=== PATIENT | male | born 1960 | race Caucasian/White ===

== ENCOUNTER 2019-12-21 16:33 | Outpatient (CLI) | payer OTHER, SELFPAY ==
--- NOTE | ~2019-12-21 | XR_ITS ---
XR hand BI arthritis min 3V 12/21/2019 17:05 Indication: Osteoarthritis. Fourth metacarpal pain. Procedure: 4 views of each hand Comparison: No prior studies for comparison. Findings: There is mild polyarticular osteoarthritis, most advanced in the first MCP, CMC and triscap he joints. No acute fracture or traumatic malalignment. No focal soft tissue abnormality. No radiopaq ue foreign bodies. No erosive changes. Impression: 1: Mild polyarticular osteoarthritis. Reviewed, dictated and finalized at location B. N DESIGN CONSULTANT Impression: 1: Mild polyarticular osteoarthritis.
--- NOTE | ~2019-12-21 | XR_ITS ---
XR knee RT 2V 12/21/2019 17:06 Indication: Osteoarthritis Procedure: 2 view right knee Comparison: 05/24/2016 Findings: There is mild-moderate tricompartment osteoarthritis, most advanced in the patellofemoral c ompartment. No significant joint effusion. No acute fracture or traumatic malalignment. Impression: 1: Mild-moderate tricompartment osteoarthritis of the right knee. Reviewed, dictated and finalized at location B. RICT AGENT Impression: 1: Mild-moderate tricompartment osteoarthritis of the right knee.
--- NOTE | ~2019-12-21 | XR_ITS ---
EXAMINATION: XR hip BI 2V w AP pelvis EXAM DATE: 12/21/2019 17:07 INDICATION: No known recent injury provided at this time. Pain of the hips bilaterally. Osteoarthriti s. TECHNIQUE: Each hip imaged independently (separate right and also left hip) 'frog leg' and frontal p rojections for interpretation. Frontal projection pelvis. There is no prior study for comparison. FINDINGS: There is moderate to severe left hip, moderate right hip osteoarthritis. Mild flattening o f the left humeral head, could be from chronic avascular necrosis. There are no acute fractures or di slocations identified. There is no subcutaneous gas. The soft tissue is unremarkable. There are n o radiopaque foreign bodies. IMPRESSION: 1. 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 2. Moderate right hip primary osteoarthritis. Reviewed, dictated and finalized at location A. CH DIRECTOR IMPRESSION: 1. Moderate to severe left hip osteoarthritis, possibly secondary to femoral h ead avascular necrosis. 2. Moderate right hip primary osteoarthritis.
--- NOTE | ~2019-12-21 | XR_ITS ---
EXAMINATION: XR knee LT 2V EXAM DATE: 12/21/2019 17:04 INDICATION: Left knee pain, osteoarthritis. TECHNIQUE: Frontal and lateral projections of the left knee. Comparison is made to prior examination from 05/24/2016. FINDINGS: There is moderate left patellofemoral, mild tibiofemoral primary osteoarthritis. No joint effusion. There are no acute fractures or dislocations identified. There is no subcutaneous gas. Th e soft tissue is unremarkable. There are no radiopaque foreign bodies. IMPRESSION: Left knee osteoarthritis, moderate at the patellofemoral compartment. Reviewed, dictated and finalized at location A. OUT OPERATOR IMPRESSION: Left knee osteoarthritis, moderate at the patellofemoral compartmen tacho
== END 2019-12-21 16:34 | disposition home or self-care (01) ==
LOC: ANHIMG 16:36
PROVIDERS: PCP Internal Medicine; Visit Provider Internal Medicine
DX: M19.041 Primary osteoarthritis, right hand (principal); M19.042 Primary osteoarthritis, left hand; M17.0 Bilateral primary osteoarthritis of knee; M16.0 Bilateral primary osteoarthritis of hip
CPT/HCPCS: 73130; 73521; 73560

== ENCOUNTER 2019-12-31 08:46 | Outpatient (CLI) | payer OTHER, SELFPAY ==
--- NOTE | 2020-01-10 12:03 | SLEEP_ITS ---
Basic Nocturnal Polysomnogram. DATE OF STUDY: 12/31/2019 ORDERING PHYSICIAN: Dr. Bruno Baez. REASON FOR THE STUDY: Loud snoring, waking up from sleep short of breath, restless sleep. HISTORY: This patient is a 59-year-old male, 72 inches tall, weighing 200 pounds with a body mass index of 27.1. He has a history of loud snoring, waking himself up during sleep, short of breath, restless sleep with tossing and turning, and snoring loudly enough that others complain about it. He occasionally has trouble sleeping with a cold. He frequently has breathing problems reported to him by others. He occasionally sweats excessively at night. He rarely notices his heart pounding or beating irregularly at night. He occasionally falls asleep during the day rarely involuntarily, never while driving and never with physical effort. He rarely has daytime difficulty due to excessive sleepiness. He does not feel paralyzed on waking or falling asleep. He denies vivid dreamlike scenes upon awakening or falling asleep. He is never afraid to go to sleep. He rarely has nightmares. He occasionally remembers his dreams. He frequently has racing thoughts. He rarely feels sad or depressed. He frequently feels anxious. He occasionally has muscular tension and notices parts of his body jerking. He rarely kicks at night. He frequently has crawly achy feelings in his legs and leg pain at night. He does not have morning jaw pain. He occasionally grinds his teeth at night. He occasionally is bothered by pain during the day. He frequently awakens with pain at night and feels stiff in the morning. He occasionally wakes up with sore achy muscles and pain in the neck and spine. He has fatigue, dizziness, memory problems, tension and takes antacids regularly. Normal bedtime is 9-10 p.m. falling asleep within 30-60 minutes, typically waking 3 or 4 times during the night to use the bathroom. He estimates that he has 5-6 hours of sleep each night. Weekend schedule is going to bed 1 hour later and waking up 2 hours later. He does take naps. A short nap may be refreshing. He is usually drowsy in the morning for an hour or longer. He feels better in the evening than in the morning. MEDICAL COMORBIDITIES: Acid reflux, seasonal allergies, arthritis, cataract surgery. MEDICATIONS: Atorvastatin, omeprazole, Naprosyn, fish oil, vitamin D3, fiber, loratadine. HABITS: Less than a half pack per day tobacco. 2-3 sodas or teas daily. No alcohol. DESCRIPTION OF THE STUDY: On the [place] Sleepiness Scale his score is 10. This was conducted as a full night basic nocturnal polysomnogram using multiple channel Silver Curve system including EOG, EEG, submental EMG, EKG, nasal and oral airflow using thermistors and nasal pressure sensors chest and abdominal belts, body position data and pulse oximetry. The study was scored using [facility] guidelines. The patient did not meet criteria early enough in the night for to be a split study. Duration of the study was 434.6 minutes. Sleep time 209 minutes. Sleep efficiency low at 48.1%. Sleep latency was prolonged 35.4 minutes. REM latency was prolonged 274 minutes. He spent 47.6% of the study awake after sleep onset 190.2 minutes. Sleep architecture showed 13.3% stage 1 sleep, 32.1% stage 2 sleep, 1.6% stage 3 sleep and 5.4% stage REM. Sleep was very fragmented with long episodes of wakefulness, especially in the first half the study. He had frequent shifts between stage I, stage II, and stage wake. He had 2 REM episodes towards the end of the study. The apnea-hypopnea index was 40.5. The obstructive index is 32.4 and the central index is 7.8. He had 20 obstructive apneas, 2 central apneas and 2 obstructive hypopneas in non-supine REM for an index of 67. He had
== END 2019-12-31 08:47 | disposition home or self-care (01) ==
LOC: ANHCSM 08:47
PROVIDERS: PCP Internal Medicine; Visit Provider Internal Medicine
DX: G47.33 Obstructive sleep apnea (adult) (pediatric) (principal); K21.9 Gastro-esophageal reflux disease without esophagitis; E78.5 Hyperlipidemia, unspecified; J30.2 Other seasonal allergic rhinitis
CPT/HCPCS: 95810

== ENCOUNTER 2020-03-17 00:18 | Outpatient (CLI) | payer OTHER, SELFPAY ==
[2020-03-17 17:26] LABS: SARS-CoV-2 RNA PCR Negative
== END 2020-03-17 00:19 | disposition home or self-care (01) ==
LOC: ANHCOVIDDT 00:19
PROVIDERS: PCP Internal Medicine; Visit Provider Internal Medicine Gastroenterology
DX: Z01.818 Encounter for other preprocedural examination (principal); Z11.59 Encounter for screening for other viral diseases
CPT/HCPCS: 87635; C9803; U0003

== ENCOUNTER → 2020-03-20 00:01 | Day surgery (SDC) | payer OTHER, SELFPAY ==
[2020-03-10 13:23] VITALS: BMI 26.9
--- NOTE | 2020-03-20 10:21 | WPDANESEPPF ---
Anes - Initial Pre Proc Eval Procedure: Operation Date: 01/12/20 11:30 Proposed Procedures p Esophagogastroduodenoscopy - Bandar Hart DO Operation Date: 03/20/20 11:30 Proposed Procedures p Esophagogastroduodenoscopy - Bandar Hart DO Date/Time: 03/20/20 10:21 Surgeon: Bandar Hart DO Pre Op Diagnosis: Gerd Patient Data Age: 59 Gender: M Height: 6 ft Weight: 90 kg Allergies Allergy/AdvReac Type Severity Reaction Status Date / Time amoxicillin Allergy Unknown Skin Verified 03/20/20 10:23 irritation Penicillins Allergy Unknown Unknown Verified 03/20/20 10:23 Home Medications Medication Instructions Recorded Confirmed Type atorvastatin 20 mg tablet 20 mg PO DAILY #90 tablet 09/21/19 03/10/20 Rx omeprazole 40 mg capsule,delayed 40 mg PO DAILY #90 cap 09/21/19 03/10/20 Rx release loratadine 10 mg tablet 10 mg PO DAILY 12/07/19 03/10/20 History omega-3 fatty acids 1,000 mg 1,000 mg PO BID 12/07/19 03/10/20 History capsule psyllium husk 0.4 gram capsule 0.4 gm PO BID cap 12/07/19 03/10/20 History cholecalciferol (vitamin D3) 25 25 mcg PO DAILY 01/28/20 03/10/20 History mcg (1,000 unit) capsule duloxetine 20 mg capsule,delayed 20 mg PO DAILY #30 cap 01/28/20 03/10/20 Rx release ferrous sulfate 325 mg (65 mg 325 mg PO DAILY 01/28/20 03/10/20 History iron) tablet tramadol 50 mg tablet 50 mg PO Q6H PRN #90 tablet 01/28/20 03/10/20 Rx melatonin 3 mg PO HS PRN 03/10/20 03/10/20 History naproxen sodium 220 mg PO DAILY 03/10/20 03/10/20 History Patient hx anesthesia problems: none Family hx anesthesia problems: none PMFSH Past Medical History Medical History (Updated 03/20/20 @ 10:34 by Bandar Hart DO) Anxiety and depression GERD (gastroesophageal reflux disease) HLD (hyperlipidemia) MARGARITA (obstructive sleep apnea) Family History Family History (Updated 09/23/18 @ 10:47 by DOCTOR UNKNOWN) Mother Diabetes mellitus Father Carcinoma of colon Other Family history of cardiovascular disease Family history of malignant neoplasm Social History Social History Smoking status: Light tobacco smoker Second hand tobacco smoke exposure: No Alcohol intake: never Gender identity (if verbalized by the patient): Male Anes - Eval Final PreProcedure Day of Procedure 03/20/20 10:21 Patient weight: normal Heart: regular rate and rhythm Lungs: clear to auscultation Airway: Mallampati scale class II Neurological: alert and oriented Last oral intake: >/= 8 hours ASA classification: II Emergent: no Anesthetic plan: proceed Anesthesia type and monitoring: general GIVS and standard monitoring Informed Consent: The patient's anesthetic plan and its attendant risks and benefits were discussed with the patient/family/POA. Questions were solicited and answers provided to the satisfaction of the patient/family/POA.
[2020-03-20 10:24] VITALS: BP 112/71; PULSE 78; RESP 20; TEMP 36.6; O2SAT 98
[2020-03-20] MEDS: LACTATED RINGERS 1,000 ML 150 ML IV CONT (10:41)
--- NOTE | 2020-03-20 10:42 | PM.IMHP ---
H&P: HPI History of Present Illness Chief complaint: Gerd Narrative: Reason for visit: EGD. This very pleasant gentleman is seen in consultation at the request of the primary. The patient was examined. GERD with occasional breakthrough symptoms and regurgitation. Family history of colon cancer. Patient has a history of colon polyps. Per past medical history. Recommendation: EGD. Colonoscopy has been scheduled. History: This very pleasant gentleman is history of reflux disease. He has occasional breakthrough symptoms despite omeprazole once a day. He does take NSAIDs regularly. He does have occasional regurgitation evening. Red sauces 10 to exacerbate his symptoms. He denies any nausea, vomiting, indigestion or significant dysphagia. He denies any constipation, diarrhea, hematochezia, melena or acholic stools. He has a previous history of colonoscopy in colon polyps. Patient is here for EGD. The patient complains of occasional lightheadedness. Otherwise review of systems unremarkable. General: very pleasant patient in no acute distress. HEENT: Head was normocephalic sclerae is clear mouth without masses neck was supple. Heart: Rate rhythm regular without S3 or S4. Lungs: CTA. Abdomen: Soft with no guarding or rigidity. Bowel sounds were active. Neurologic: Cranial nerves 2 through 12 intact. No focal defects. No clonus. Musculoskeletal system: Revealed no joint tenderness or swelling no muscle atrophy. Extremities: Reveal no significant edema. Skin: Warm and dry with normal turgor. Mental status: intact. Patient is alert and oriented. Review of Systems Review of Systems: All systems reviewed & are unremarkable except as noted in HPI and below PMFSH Past Medical History Medical History Anxiety and depression GERD (gastroesophageal reflux disease) HLD (hyperlipidemia) MARGARITA (obstructive sleep apnea) Tobacco use Surgical History Surgical History (Updated 03/20/20 @ 10:42 by Bandar Hart DO) H/O arthroscopic knee surgery H/O colonoscopy History of cataract surgery Family History Family History (Updated 09/23/18 @ 10:47 by DOCTOR UNKNOWN) Mother Diabetes mellitus Father Carcinoma of colon Other Family history of cardiovascular disease Family history of malignant neoplasm Social History Social History Smoking status: Light tobacco smoker Second hand tobacco smoke exposure: No Alcohol intake: never Gender identity (if verbalized by the patient): Male Meds Home Medications and Allergies Home Medications Medication Instructions Recorded Confirmed Type atorvastatin 20 mg tablet 20 mg PO DAILY #90 tablet 09/21/19 03/10/20 Rx omeprazole 40 mg capsule,delayed 40 mg PO DAILY #90 cap 09/21/19 03/10/20 Rx release loratadine 10 mg tablet 10 mg PO DAILY 12/07/19 03/10/20 History omega-3 fatty acids 1,000 mg 1,000 mg PO BID 12/07/19 03/10/20 History capsule psyllium husk 0.4 gram capsule 0.4 gm PO BID cap 12/07/19 03/10/20 History cholecalciferol (vitamin D3) 25 25 mcg PO DAILY 01/28/20 03/10/20 History mcg (1,000 unit) capsule duloxetine 20 mg capsule,delayed 20 mg PO DAILY #30 cap 01/28/20 03/10/20 Rx release ferrous sulfate 325 mg (65 mg 325 mg PO DAILY 01/28/20 03/10/20 History iron) tablet tramadol 50 mg tablet 50 mg PO Q6H PRN #90 tablet 01/28/20 03/10/20 Rx melatonin 3 mg PO HS PRN 03/10/20 03/10/20 History naproxen sodium 220 mg PO DAILY 03/10/20 03/10/20 History Allergies Allergy/AdvReac Type Severity Reaction Status Date / Time amoxicillin Allergy Unknown Skin Verified 03/20/20 10:23 irritation Penicillins Allergy Unknown Unknown Verified 03/20/20 10:23 Vital Signs Vital Signs - 24 hr 03/20/20 10:24 Temperature 36.6 C Pulse Rate 78 Respiratory Rate 20 Blood Pressure 112/71 Pulse Oximetry 98
[2020-03-20] MEDS: BENZOCAINE (*SP) 60 ML SPRAY CAN (HURRICAINE) 1 SPRAY MUCOUS MEM (10:46)
[2020-03-20 10:57] VITALS: BP 83/46; PULSE 75; RESP 17; O2SAT 97
[2020-03-20 11:07] VITALS: BP 102/66; PULSE 77; RESP 16; O2SAT 96
[2020-03-20 11:17] VITALS: BP 97/64; PULSE 69; RESP 16; O2SAT 96
== END ==
PROVIDERS: PCP Internal Medicine; Visit Provider Internal Medicine Gastroenterology
PROC: 0DJ08ZZ Inspection of Upper Intestinal Tract, Via Natural or Artificial Opening Endoscopic (ICD-10-PCS; CPT 43235; principal; 2020-03-20 11:30)
DX: K21.9 Gastro-esophageal reflux disease without esophagitis (principal); K22.70 Barrett's esophagus without dysplasia; E78.5 Hyperlipidemia, unspecified; G47.33 Obstructive sleep apnea (adult) (pediatric); F41.8 Other specified anxiety disorders; F17.200 Nicotine dependence, unspecified, uncomplicated
CPT/HCPCS: 43239; 87081; 88305; J2704; J7120

== ENCOUNTER 2020-03-31 00:27 | Outpatient (CLI) | payer OTHER, SELFPAY ==
[2020-03-31 17:48] LABS: SARS-CoV-2 RNA PCR Negative
== END 2020-03-31 00:28 | disposition home or self-care (01) ==
LOC: ANHCOVIDDT 00:27
PROVIDERS: PCP Internal Medicine; Visit Provider Internal Medicine Gastroenterology
DX: Z01.812 Encounter for preprocedural laboratory examination (principal); Z20.828 Contact with and (suspected) exposure to other viral communicable diseases
CPT/HCPCS: 87635; C9803; U0003

== ENCOUNTER 2020-04-03 01:04 | Day surgery (SDC) | payer OTHER, SELFPAY ==
[2020-03-28 15:08] VITALS: BMI 27.1
[2020-04-03 10:57] VITALS: BP 123/72; PULSE 98; RESP 18; TEMP 36.6; O2SAT 99
--- NOTE | 2020-04-03 11:10 | WPDANESEPPF ---
Anes - Initial Pre Proc Eval Procedure: Operation Date: 04/03/20 12:00 Proposed Procedures p Screening Colonoscopy - Bandar Hart DO Date/Time: 04/03/20 11:10 Surgeon: Bandar Hart DO Pre Op Diagnosis: Neoplasm Screening Patient Data Age: 59 Gender: M Height: 6 ft Weight: 85.3 kg Last Vital Signs Temp 36.6 C 04/03/20 10:57 Pulse 98 04/03/20 10:57 Resp 18 04/03/20 10:57 BP 123/72 04/03/20 10:57 Pulse Ox 99 04/03/20 10:57 Allergies Allergy/AdvReac Type Severity Reaction Status Date / Time amoxicillin Allergy Unknown Skin Verified 04/03/20 10:53 irritation Penicillins Allergy Unknown Unknown Verified 04/03/20 10:53 Home Medications Medication Instructions Recorded Confirmed Type loratadine 10 mg tablet 10 mg PO DAILY 12/07/19 03/28/20 History omega-3 fatty acids 1,000 mg 1,000 mg PO BID 12/07/19 03/28/20 History capsule psyllium husk 0.4 gram capsule 0.4 gm PO BID cap 12/07/19 03/28/20 History cholecalciferol (vitamin D3) 25 25 mcg PO DAILY 01/28/20 03/28/20 History mcg (1,000 unit) capsule ferrous sulfate 325 mg (65 mg 325 mg PO DAILY 01/28/20 03/28/20 History iron) tablet melatonin 3 mg PO HS PRN 03/10/20 03/28/20 History naproxen sodium 220 mg PO DAILY 03/10/20 03/28/20 History atorvastatin 20 mg tablet 20 mg PO DAILY #90 tablet 03/21/20 03/28/20 Rx omeprazole 40 mg capsule,delayed 40 mg PO DAILY #90 cap 03/21/20 03/28/20 Rx release duloxetine 20 mg capsule,delayed 20 mg PO DAILY #30 cap 03/22/20 03/28/20 Rx release tramadol 50 mg tablet 50 mg PO Q6H PRN #90 tablet 03/22/20 04/03/20 Rx acetaminophen [Tylenol Arthritis 650 mg PO Q12H PRN 03/28/20 03/28/20 History Pain] Patient hx anesthesia problems: none Family hx anesthesia problems: none PMFSH Past Medical History Medical History Anxiety and depression GERD (gastroesophageal reflux disease) HLD (hyperlipidemia) MARGARITA (obstructive sleep apnea) Tobacco use Surgical History Surgical History H/O arthroscopic knee surgery H/O colonoscopy History of cataract surgery Family History Family History Mother Diabetes mellitus Father Carcinoma of colon Other Family history of cardiovascular disease Family history of malignant neoplasm Social History Social History Smoking status: Light tobacco smoker Second hand tobacco smoke exposure: No Alcohol intake: never Gender identity (if verbalized by the patient): Male Anes - Eval Final PreProcedure Day of Procedure 04/03/20 11:10 Patient weight: overweight Heart: regular rate and rhythm Lungs: clear to auscultation Airway: Mallampati scale class II Neurological: alert and oriented Last oral intake: >/= 8 hours ASA classification: II Emergent: no Anesthetic plan: proceed Anesthesia type and monitoring: general GIVS and standard monitoring Informed Consent: The patient's anesthetic plan and its attendant risks and benefits were discussed with the patient/family/POA. Questions were solicited and answers provided to the satisfaction of the patient/family/POA.
[2020-04-03] MEDS: LACTATED RINGERS 1,000 ML 150 ML IV CONT (11:17)
--- NOTE | 2020-04-03 11:44 | PM.IMHP ---
H&P: HPI History of Present Illness Chief complaint: Neoplasm Screening Narrative: This very pleasant gentleman is seen in consultation at the request the primary. Reason for visit is colonoscopy. Impression: Screening and surveillance colonoscopy. The patient's history adenomatous colon polyps. GERD well controlled on medication. HLD. MARGARITA. Arthritis. Recommendation: Colonoscopy. History: This very pleasant gentleman has a negative GI review systems. He has a history of reflux disease well controlled on medication. He is here for screening and surveillance colonoscopy. He has a history of adenomatous colon polyps. Physical examination: General: very pleasant patient in no acute distress. HEENT: Head was normocephalic sclerae is clear mouth without masses neck was supple. Heart: Rate rhythm regular without S3 or S4. Lungs: CTA. Abdomen: Soft with no guarding or rigidity. Bowel sounds were active. Neurologic: Cranial nerves 2 through 12 intact. No focal defects. No clonus. Musculoskeletal system: Revealed no joint tenderness or swelling no muscle atrophy. Extremities: Reveal no significant edema. Skin: Warm and dry with normal turgor. Mental status: intact. Patient is alert and oriented. Review of Systems Review of Systems: All systems reviewed & are unremarkable except as noted in HPI and below PMFSH Past Medical History Medical History Adenomatous colon polyp Anxiety and depression GERD (gastroesophageal reflux disease) HLD (hyperlipidemia) MARGARITA (obstructive sleep apnea) Tobacco use Surgical History Surgical History H/O arthroscopic knee surgery H/O colonoscopy History of cataract surgery Family History Family History Mother Diabetes mellitus Father Carcinoma of colon Other Family history of cardiovascular disease Family history of malignant neoplasm Social History Social History Smoking status: Light tobacco smoker Second hand tobacco smoke exposure: No Alcohol intake: never Gender identity (if verbalized by the patient): Male Meds Home Medications and Allergies Home Medications Medication Instructions Recorded Confirmed Type loratadine 10 mg tablet 10 mg PO DAILY 12/07/19 03/28/20 History omega-3 fatty acids 1,000 mg 1,000 mg PO BID 12/07/19 03/28/20 History capsule psyllium husk 0.4 gram capsule 0.4 gm PO BID cap 12/07/19 03/28/20 History cholecalciferol (vitamin D3) 25 25 mcg PO DAILY 01/28/20 03/28/20 History mcg (1,000 unit) capsule ferrous sulfate 325 mg (65 mg 325 mg PO DAILY 01/28/20 03/28/20 History iron) tablet melatonin 3 mg PO HS PRN 03/10/20 03/28/20 History naproxen sodium 220 mg PO DAILY 03/10/20 03/28/20 History atorvastatin 20 mg tablet 20 mg PO DAILY #90 tablet 03/21/20 03/28/20 Rx omeprazole 40 mg capsule,delayed 40 mg PO DAILY #90 cap 03/21/20 03/28/20 Rx release duloxetine 20 mg capsule,delayed 20 mg PO DAILY #30 cap 03/22/20 03/28/20 Rx release tramadol 50 mg tablet 50 mg PO Q6H PRN #90 tablet 03/22/20 04/03/20 Rx acetaminophen [Tylenol Arthritis 650 mg PO Q12H PRN 03/28/20 03/28/20 History Pain] Allergies Allergy/AdvReac Type Severity Reaction Status Date / Time amoxicillin Allergy Unknown Skin Verified 04/03/20 10:53 irritation Penicillins Allergy Unknown Unknown Verified 04/03/20 10:53 Vital Signs Vital Signs - 24 hr 04/03/20 10:57 Temperature 36.6 C Pulse Rate 98 Respiratory Rate 18 Blood Pressure 123/72 Pulse Oximetry 99
[2020-04-03] MEDS: SIMETHICONE ORAL SUSPENSION 20 MG/0.3 ML 30 ML BOTTLE 0.6 ML IRRIGATION (12:24)
[2020-04-03 12:26] VITALS: BP 106/67; PULSE 76; RESP 16; O2SAT 99
[2020-04-03 12:36] VITALS: BP 104/67; PULSE 80; RESP 16; O2SAT 99
[2020-04-03 12:46] VITALS: BP 104/74; PULSE 78; RESP 18; O2SAT 99
== END 2020-04-03 13:01 | disposition home or self-care (01) ==
PROVIDERS: PCP Internal Medicine; Visit Provider Internal Medicine Gastroenterology
PROC: 0DJD8ZZ Inspection of Lower Intestinal Tract, Via Natural or Artificial Opening Endoscopic (ICD-10-PCS; CPT 45378; principal; 2020-04-03 12:00)
DX: Z12.11 Encounter for screening for malignant neoplasm of colon (principal); D12.2 Benign neoplasm of ascending colon; Z80.0 Family history of malignant neoplasm of digestive organs; E78.5 Hyperlipidemia, unspecified; G47.33 Obstructive sleep apnea (adult) (pediatric); K21.9 Gastro-esophageal reflux disease without esophagitis; F41.8 Other specified anxiety disorders; F17.200 Nicotine dependence, unspecified, uncomplicated
CPT/HCPCS: 45380; 88305; J2001; J2704; J7120

== ENCOUNTER 2020-04-20 11:15 | Outpatient (CLI) | payer OTHER, SELFPAY ==
--- NOTE | ~2020-04-20 | XR_ITS ---
EXAMINATION: XR lg joint inject/asp w image DATE: 04/20/2020 12:03 INDICATION: Left hip arthritis TECHNIQUE: A time-out was performed to verify the patient's name, date of , and procedure to b e performed. The procedure including the risks, benefits, and alternatives was discussed with the pat ient. Risks discussed included bleeding and infection. The patient understood the risks and agreed to proceed. The skin overlying the left hip joint was prepped and draped in usual sterile fashion. An esthetic was administered with 1% lidocaine subcutaneously. A 22 G needle was advanced under fluoros copic guidance into the joint. Injection of 0.6 mL of Omnipaque 240 confirmed intra-articular positi on of the needle. Subsequently, injectate consisting of 3 mm of a 2:1 mixture of 0.5% Marcaine: 80 m g/mL Depo-Medrol for a total dosage of 80 mg Depo-Medrol was instilled. Washout of contrast was seen confirming intra-articular administration. The needle was removed and the entry site was cleaned and dressed. There were no immediate complications. Fluoroscopy exposure time was 0.1 minutes. The total number of images was 2. FINDINGS: Real-time fluoroscopy demonstrates the needle in the left hip joint. Patient's pain prior t o procedure:6/10. Patient's pain following the procedure: 4/10. Severe osteoarthritis at the left hi p with flattening of the articular surface of the superolateral left femoral head. IMPRESSION: 1. Left hip joint injection of local anesthetic and steroid with decrease in the patient's presenting pain. Reviewed, dictated and finalized at location A. IMPRESSION: 1. Left hip joint injection of local anesthetic and steroid with decrease in th e patient's presenting pain.
== END 2020-04-20 11:16 | disposition home or self-care (01) ==
PROVIDERS: PCP Internal Medicine; Visit Provider Orthopaedic Surgery
DX: M16.12 Unilateral primary osteoarthritis, left hip (principal)
CPT/HCPCS: 20610; 77002; J1040; Q9966

== ENCOUNTER → 2020-12-04 08:44 | Outpatient (CLI) | payer OTHER, SELFPAY ==
--- NOTE | ~2020-12-04 | CT_ITS ---
EXAMINATION: CT lung screening DATE: 12/04/2020 08:58 INDICATION: Personal history of nicotine dependence, current smoker with 30 pack year history TECHNIQUE: Computed tomography (CT) of the chest was performed without intravenous contrast. The dose -length product (DLP) was 157.29 mGy-cm. Automated exposure control and iterative reconstruction tech Dissolve were employed. COMPARISON: None FINDINGS: There is mild emphysema. No suspicious pulmonary nodules are identified. There is no pleura l effusion or pneumothorax. The lungs are free of acute opacities. No pathologically enlarged thoraci c lymph nodes are identified. The heart size is normal. Calcified coronary artery atherosclerosis is noted. There is mild thoracic spondylosis. IMPRESSION: 1. Lung-RADS category 1: Negative. Continue annual screening with noncontrast low-dose chest CT in 12 months. Reviewed, dictated and finalized at location A. IGURATION TECHNICIAN IMPRESSION: 1. Lung-RADS category 1: Negative. Continue annual screening with noncontrast l ow-dose chest CT in 12 months.
== END ==
PROVIDERS: PCP Internal Medicine; Visit Provider Internal Medicine
DX: Z12.2 Encounter for screening for malignant neoplasm of respiratory organs (principal); Z87.891 Personal history of nicotine dependence
CPT/HCPCS: 71271

== ENCOUNTER 2021-03-08 08:06 | Outpatient (CLI) | payer OTHER, SELFPAY ==
--- NOTE | 2021-03-08 08:54 | ECG_ITS ---
Measurements Intervals [place] Rate: 77 P: 36 [place]: 175 QRS: 8 QRSD: 94 T: 14 QT: 363 QTc: 411 Interpretive Statements SINUS RHYTHM INCOMPLETE RIGHT BUNDLE BRANCH BLOCK BASELINE ARTIFACT- I, II, III, AVR, AVL, AVF BORDERLINE ECG Electronically Signed On 03-08-2021 10:30:08 CDT by Ozzy Bhat D.O.
[2021-03-08 09:27] LABS: Basophils Percent Auto 0.6 % (0.2-1.2); Eosinophils Absolute Auto 0.1 K/mm3 (0-0.3); Eosinophils Percent Auto 1.1 % (0-4.4); Hematocrit 43.5 % (42.0-52.0); Hemoglobin 14.8 g/dL (14.0-18.0); Immature Granulocyte Absolute 0.01 K/mm3 (0.00-0.031); Immature Granulocyte Percent A 0.2 % (0-0.5); Lymphocytes Absolute Auto 1.07 K/mm3 (0.9-3.2); Lymphocytes Percent Auto 22.8 % (18.3-44.2); Mean Corpuscular Volume 94.2 fl (80-100); Mean Platelet Volume 8.8 fl (7.4-10.4); Monocytes Absolute Auto 0.5 K/mm3 (0.1-0.6); Monocytes Percent Auto 11.1 % (2.6-8.5); Neutrophils Percent Auto 64.2 % (45.5-73.1); Platelet Count Result 239 k/mm3 (150-375); Red Blood Count 4.62 M/mm3 (4.6-6.20); Red Cell Distribution Width 12.5 % (11.5-14.5); White Blood Count 4.7 K/mm3 (4.5-10.0)
[2021-03-08 09:31] LABS: Add Urine Microscopic? YES; Appearance Urine Clear (Clear); Bilirubin Urine Negative (Negative); Blood Urine 2+ (Negative); Color Urine Yellow (Yellow); Glucose Urine UA Negative (Negative); Ketones Urine Negative (Negative); Leukocyte Esterase Ur Negative LEU/UL (Negative); Mucus Urine Heavy /lpf; Nitrate Urine Negative (Negative); Protein Urine 2+ mg/dL (Negative); Urobilinogen Urine Negative mg/dL (<2.0); WBC Urine 0-3 /hpf
[2021-03-08 09:38] LABS: Prothrombin Time 13.8 Seconds (11.1-14.7)
[2021-03-08 09:39] LABS: Albumin Level 4.6 g/dL (3.5-5.1); Anion Gap 8 mmol/L (8-16); Blood Urea Nitrogen 23 mg/dL (9-20); Calcium 9.5 mg/dL (8.4-10.2); Carbon Dioxide 29 mmol/L (22-30); Chloride 103 mmol/L (98-107); Estimated Glomerular Filt Rate > 60; Glucose 97 mg/dL (75-110); Sodium 140 mmol/L (137-145); Specific Grav Ur 1.039 (1.001-1.035)
[2021-03-08 09:41] LABS: Urine Cotinine NEGATIVE
[2021-03-08 09:52] LABS: Hemoglobin A1C 5.2 % (<5.7)
== END 2021-03-08 08:07 | disposition home or self-care (01) ==
LOC: ANHSURGERY 08:09
PROVIDERS: PCP Internal Medicine; Visit Provider Orthopaedic Surgery
DX: Z01.818 Encounter for other preprocedural examination (principal); M16.12 Unilateral primary osteoarthritis, left hip; I45.10 Unspecified right bundle-branch block; Z51.81 Encounter for therapeutic drug level monitoring; Z79.899 Other long term (current) drug therapy
CPT/HCPCS: 36415; 80048; 80307; 81001; 82040; 83036; 85025; 85610; 85730; 86850; 86900; 86901; 87081; 93005

== ENCOUNTER → 2021-03-17 03:02 | Outpatient (CLI) | payer OTHER, SELFPAY ==
[2021-03-17 19:46] LABS: SARS-CoV-2 RNA PCR Negative
== END ==
PROVIDERS: PCP Internal Medicine; Visit Provider Orthopaedic Surgery
DX: Z01.812 Encounter for preprocedural laboratory examination (principal); Z20.822 Contact with and (suspected) exposure to COVID-19
CPT/HCPCS: C9803; U0003; U0005

== ENCOUNTER 2021-03-20 00:52 | Day surgery (SDC) | payer OTHER, SELFPAY ==
[2021-03-08 08:33] VITALS: BP 128/80; PULSE 86; RESP 20; TEMP 37.2; O2SAT 96; BMI 26.3
[2021-03-20] VITALS (18 sets, daily range): BP systolic 98–133; BP diastolic 55–85; PULSE 74–97; RESP 12–18; TEMP 36.1–36.5; O2SAT 93–100
--- NOTE | ~2021-03-20 | XR_ITS ---
EXAMINATION: XR hip LT 1V DATE: 03/20/2021 10:43 INDICATION: Total left hip arthroplasty. Postop. TECHNIQUE: A single view of left hip was obtained. COMPARISON: Left hip radiographs 03/05/2021 FINDINGS: There is a total left hip arthroplasty in near-anatomic alignment. No fracture. There is ga s in the soft tissues, consistent with recent surgery. IMPRESSION: 1. Total left hip arthroplasty in near-anatomic alignment. Reviewed, dictated and finalized at location A.
[2021-03-20] MEDS: LACTATED RINGERS 1,000 ML 30 ML IV CONT ×2 (06:50→10:32)
[2021-03-20] MEDS: TRANEXAMIC ACID 1,000MG/ISO100 1,000 MG/100 ML BAG 200 MG IVPB (06:53)
--- NOTE | 2021-03-20 06:56 | WPDANESEPPF ---
Anes - Initial Pre Proc Eval Procedure: Operation Date: 03/20/21 07:30 Proposed Procedures p Left Total Hip Arthroplasty - Tucker Gaspar MD Date/Time: 03/20/21 06:56 Surgeon: Tucker Gaspar MD Pre Op Diagnosis: left hip DJD Patient Data Age: 60 Gender: M Height: 6 ft 1.5 in Weight: 91.8 kg Last Vital Signs Temp 37.2 C 03/08/21 08:33 Pulse 86 03/08/21 08:33 Resp 20 03/08/21 08:33 BP 128/80 03/08/21 08:33 Pulse Ox 96 03/08/21 08:33 Allergies Allergy/AdvReac Type Severity Reaction Status Date / Time amoxicillin Allergy Unknown Skin Verified 03/20/21 06:56 irritation-rash Penicillins Allergy Unknown Rash Verified 03/20/21 06:56 Home Medications Medication Instructions Recorded Confirmed Type omega-3 fatty acids 1,000 mg 1,000 mg PO BID 12/07/19 03/20/21 History capsule psyllium husk 0.4 gram capsule 0.4 gm PO BID cap 12/07/19 03/20/21 History acetaminophen [Tylenol Arthritis 650 mg PO Q12H PRN 03/28/20 03/20/21 History Pain] calcium carbonate 600 mg (1,500 1 cap PO DAILY 09/19/20 03/20/21 History mg)-vitamin D3 500 unit capsule diphenhydramine HCl 25 mg capsule 25 mg PO DAILY PRN cap 09/19/20 03/20/21 History naproxen sodium 220 mg tablet 220 mg PO BID PRN 09/19/20 03/20/21 History turmeric 1,500 mg PO DAILY 09/19/20 03/20/21 History duloxetine 40 mg capsule,delayed 40 mg PO DAILY #90 cap 11/06/20 03/20/21 Rx release melatonin 10 mg tablet 5 mg PO HS 11/06/20 03/20/21 History atorvastatin 20 mg tablet 20 mg PO DAILY #90 tablet 12/11/20 03/20/21 Rx gabapentin 300 mg capsule 300 mg PO .qhs #90 cap 12/13/20 03/20/21 Rx chlorhexidine gluconate 4 % 1 applic TOPICAL ONCE #237 ml 01/17/21 03/20/21 Rx topical liquid omeprazole 40 mg PO HS 03/08/21 03/20/21 History sulfamethoxazole 800 1 tablet PO Q12H #14 tablet 03/09/21 Rx mg-trimethoprim 160 mg tablet Patient hx anesthesia problems: none Family hx anesthesia problems: none PMFSH Past Medical History Medical History Adenomatous colon polyp Anxiety and depression Patel esophagus Diverticulosis Dizziness GERD (gastroesophageal reflux disease) High cholesterol HLD (hyperlipidemia) Left knee pain MARGARITA (obstructive sleep apnea) Right knee pain Tobacco use Vision abnormalities Surgical History Surgical History H/O arthroscopic knee surgery H/O colonoscopy History of cataract surgery Family History Family History Mother Diabetes mellitus Father Carcinoma of colon Other Family history of cardiovascular disease Family history of malignant neoplasm Social History Social History Smoking packs per day: 0.2 Smoking cigarettes per day: 4.0 Years smoked: 30 Smoking pack-years: 6.00 Tobacco type: cigarettes Second hand tobacco smoke exposure: No Smoking end date: 01/29/21 Alcohol intake: never Substance use: never Substance use type: does not use Living arrangements: with family Gender identity (if verbalized by the patient): Male Spiritual care concerns: No Anes - Eval Final PreProcedure Day of Procedure 03/20/21 06:56 Patient weight: overweight Heart: regular rate and rhythm Lungs: decreased breath sounds Airway: Mallampati scale class II Neurological: alert and oriented Last oral intake: >/= 8 hours ASA classification: III Emergent: no Anesthetic plan: proceed Anesthesia type and monitoring: general ETT and standard monitoring Informed Consent: The patient's anesthetic plan and its attendant risks and benefits were discussed with the patient/family/POA. Questions were solicited and answers provided to the satisfaction of the patient/family/POA.
--- NOTE | 2021-03-20 07:25 | WPDHPUPDATE1 ---
History and Physical Update Update Date/Time: 03/20/21 07:25 History and Physical has been reviewed, including an updated exam of the patient. There are NO changes in the patient's condition. Risks, benefits, and alternatives have been discussed and questions answered. Patient agrees to proceed with procedure.
[2021-03-20] MEDS: ceFAZolin 2 GM/D5W 50 ML 2 GM/50 ML BAG IVPB ×3 (07:30→23:56)
[2021-03-20] MEDS: TRANEXAMIC ACID 1,000 MG/10 ML AMPUL 1000 MG IV PUSH (09:42)
--- NOTE | 2021-03-20 10:43 | PM.PROC ---
Procedure Note - Detailed Date of procedure: 03/20/21 Pre-op diagnosis: left hip DJD LEFT HIP DJD Post-op diagnosis: same Procedure performed: LEFT NITA Description of procedure: THE PATIENT WAS TAKEN TO THE OPERATING ROOM IN STABLE CONDITION. SHE WAS PLACED IN THE LATERAL DECUBITUS AND THE LEFT LOWER EXTREMITY WAS PREPPED AND DRAPED IN THE STERILE FASHION. INCISION WAS MADE IN THE POSTERIOR LATERAL SIDE OF THE HIP, DOWN TO THE FASCIA LAYER. THE FASCIA WAS INCISED. THE HIP WAS EXPOSED. THE SHORT EXTERNAL ROTATORS WERE EXPOSED AND THE SCIATIC NERVE WAS VISUALIZED. THE CAPSULE WAS INCISED EXPOSING THE HIP JOINT. THE HIP WAS DISLOCATED. AN OSTEOTOMY WAS MADE TO THE FEMORAL NECK ABOUT 1 CM PROXIMAL TO THE LESSER TROCHANTER. THE ACETABULUM WAS EXPOSED. THERE WAS SEVERE DJD SEEN. THE ACETABULUM WAS REAMED TO 53 MM. A 53 MM TRIAL WAS PLACED IN 35 DEG OF ABDUCTION AND ANTEVERSION WAS IN ALIGNMENT WITH THE TRANS ACETABULAR LIGAMENT. THE FIT WAS EXCELLENT. THE TRIAL WAS REMOVED. A 54 MM BIOMET G7 COMPONENT WAS THEN TAPPED IN TO PLACE IN 35 DEG OF ABDUCTION AND ANTEVERSION IN ALIGNMENT WITH THE TRANSVERSE ACETABULAR LIGAMENT. THE ACETABULAR LINER WAS PLACED AND CHECKED FOR STABILITY. NEXT THE FEMUR WAS PREPARED WITH INITIAL CANAL FINDER THEN SEQUENTIAL BROACHING TILL AN 12 BROACH FIT WELL IN 15 OF ANTE VERSION. A 0 HIGH OFFSET NECK WITH 36 MM HEAD TRIAL WAS PLACED. THE [place] TEST WAS EXCELLENT AND THE STABILITY IN FLEXION AND ROTATION WAS EXCELLENT. LEG LENGTHS WERE GROSSLY EQUAL. TRIALS WERE REMOVED. A BIOMET TAPERLOC 12 STEM WAS PLACED WITH A HIGH OFFSET NECK. THE FIT WAS EXCELLENT IN 15 DEG OF ANTEVERSION. A 0 CERAMIC 36 MM FEMORAL HEAD WAS PLACED. THE HIP WAS TRIALED AND THE STABILITY WAS EXCELLENT WERE THE LEG LENGTHS AND THE [place] TEST. THE WOUND WAS IRRIGATED WITH STERILE BETADINE AND WATER FOR 3 MIN. THEN WASHED AGAIN. THE CAPSULE AND THE EXTERNAL ROTATORS WERE APPROXIMATED WITH NUMBER 1 VICRYL. THE FASCIA WITH No 2 QUIL AND THE SUB CUTANEOUS LAYER WITH 2-0 ABSORBABLE SUTURE WITH A RUNNING 3-0 SUBCUTICULAR LAYER WELL. DERMABOND WAS PLACED AND STERILE DRESSING WAS APPLIED. PATIENT WAS PLACED BACK ON TO THE SUPINE POSITION AND WAS EXTUBATED. Anesthesia: GETA Surgeon: Tucker Gaspar MD Estimated blood loss (mL): 150 Drains: No Complications: No immediate complications Condition: stable Disposition: PACU
[2021-03-20] MEDS: ONDANSETRON INJ 4 MG/2 ML VIAL IV PUSH ×3 (10:58→17:52)
[2021-03-20] MEDS: fentaNYL CITRATE INJ (*CRX) 100 MCG/2 ML VIAL 25 MCG IV PUSH ×4 (10:58→12:00)
[2021-03-20] MEDS: diphenhydrAMINE HCl INJ 50 MG/ML VIAL 6.25 MG IV PUSH (11:51)
--- NOTE | 2021-03-20 12:40 | ADMGEN ---
This patient, Bryant Bacon, was admitted to -. Patient/family oriented to hospital policies and general routines including ID bracelet, bed and alarms, visiting hours, pain management, procedures, bathroom and other care routines, personal items, smoking policy, room service/diet, and visiting hours. Information on how to activate the Rapid Response Team has been discussed. Patient/Family are encouraged to report perceived risks to care and to ask questions if they do not understand what they are told or what they should do.
[2021-03-20] MEDS: MORPHINE SULFATE (*CRX) 4 MG/ML INJ 3 MG IV PUSH ×2 (13:39→16:42)
[2021-03-20] MEDS: KETOROLAC 15 MG/ML VIAL (*BKC) IV PUSH ×3 (13:43→23:56)
--- NOTE | 2021-03-20 13:53 | PCOTNOTE ---
Attempted OT evaluation, per RN patient having to much pain at this time. will attempt at later time.
[2021-03-20] MEDS: KCL 20 MEQ/D5/0.45% SOD CHL 1,000 ML 80 ML IV CONT (14:47)
[2021-03-20] MEDS: diazePAM (*CRX) 5 MG TABLET PO (14:47)
[2021-03-20] MEDS: DOCUSATE SODIUM 100 MG CAPSULE PO (16:12)
[2021-03-20] MEDS: HYDROcodone/acetaminophen (*CRX) 7.5-325 MG TABLET 1 TAB PO (20:43)
[2021-03-20] MEDS: MELATONIN 5 MG TABLET PO (20:43)
[2021-03-20] MEDS: GABAPENTIN 300 MG CAPSULE PO (20:43)
[2021-03-20] MEDS: PANTOPRAZOLE 40 MG TABLET PO (20:43)
[2021-03-20 21:46] LABS: Hematocrit 33.6 % (42.0-52.0); Hemoglobin 11.3 g/dL (14.0-18.0)
[2021-03-21 02:14] VITALS: BP 117/59; PULSE 90; RESP 16; TEMP 36.5; O2SAT 98
[2021-03-21] MEDS: KETOROLAC 15 MG/ML VIAL (*BKC) IV PUSH ×2 (05:33→11:45)
[2021-03-21 05:41] LABS: Basophils Percent Auto 0.1 % (0.2-1.2); Hematocrit 31.7 % (42.0-52.0); Hemoglobin 10.8 g/dL (14.0-18.0); Immature Granulocyte Absolute 0.04 K/mm3 (0.00-0.031); Immature Granulocyte Percent A 0.4 % (0-0.5); Lymphocytes Absolute Auto 0.91 K/mm3 (0.9-3.2); Lymphocytes Percent Auto 8.9 % (18.3-44.2); Mean Corpuscular HGB Conc 34.1 g/dl (32-36); Mean Corpuscular Hemoglobin 31.7 pg (26-34); Mean Platelet Volume 9.1 fl (7.4-10.4); Monocytes Absolute Auto 1.2 K/mm3 (0.1-0.6); Monocytes Percent Auto 11.9 % (2.6-8.5); Neutrophils Percent Auto 78.7 % (45.5-73.1); Platelet Count Result 209 k/mm3 (150-375); Red Blood Count 3.41 M/mm3 (4.6-6.20); Red Cell Distribution Width 12.8 % (11.5-14.5); White Blood Count 10.2 K/mm3 (4.5-10.0)
[2021-03-21 05:54] LABS: Anion Gap 8 mmol/L (8-16); Blood Urea Nitrogen 14 mg/dL (9-20); Calcium 8.6 mg/dL (8.4-10.2); Carbon Dioxide 27 mmol/L (22-30); Chloride 102 mmol/L (98-107); Estimated CRCL calculation 79 ml/min; Estimated Glomerular Filt Rate > 60; Glucose 120 mg/dL (75-110); Potassium 3.5 mmol/L (3.4-5.0); Sodium 137 mmol/L (137-145)
[2021-03-21 06:14] VITALS: BP 122/59; PULSE 100; RESP 18; TEMP 36.4; O2SAT 98
[2021-03-21 07:36] VITALS: PULSE 100; RESP 18; O2SAT 98
[2021-03-21] MEDS: ASPIRIN 325 MG ENTERIC TABLET 650 MG PO (08:40)
[2021-03-21] MEDS: HYDROcodone/acetaminophen (*CRX) 7.5-325 MG TABLET 1 TAB PO ×2 (08:40→16:16)
[2021-03-21] MEDS: ATORVASTATIN 20 MG TABLET PO (08:40)
[2021-03-21] MEDS: ceFAZolin 2 GM/D5W 50 ML 2 GM/50 ML BAG IVPB (08:40)
[2021-03-21] MEDS: DOCUSATE SODIUM 100 MG CAPSULE PO (08:40)
[2021-03-21 10:00] VITALS: BP 103/59; PULSE 95; RESP 14; TEMP 36.4; O2SAT 98
[2021-03-21] MEDS: MORPHINE SULFATE (*CRX) 4 MG/ML INJ 3 MG IV PUSH (10:26)
--- NOTE | 2021-03-21 11:30 | P.PNAN_ITS ---
Anes - Prog Note Post-Op Date/Time: 03/21/21 11:30 Cardiovascular status: normal Respiratory status: normal Airway patency: baseline Mental status: baseline Post-Op hydration status: normal Vital Signs: Last Vital Signs Temp 36.4 C 03/21/21 10:00 Pulse 95 03/21/21 10:00 Resp 14 03/21/21 10:00 BP 103/59 L 03/21/21 10:00 Pulse Ox 98 03/21/21 10:00 Pain Score (VAS): 0 I/O: Intake & Output 03/20/21 03/21/21 03/21/21 23:59 07:59 15:59 Intake Total 230 1050 290 Output Total 400 750 200 Balance -170 300 90 Laboratory Tests 03/21/21 05:05 03/21/21 05:05 03/20/21 03/21/21 03/21/21 21:22 05:05 05:05 WBC 10.2 H RBC 3.41 L Hgb 11.3 L D 10.8 L Hct 33.6 L 31.7 L MCV 93.0 MCH 31.7 MCHC 34.1 RDW 12.8 Plt Count 209 MPV 9.1 Immature Gran % (Auto) 0.4 Neut % (Auto) 78.7 H Lymph % (Auto) 8.9 L [place] % (Auto) 11.9 H Eos % (Auto) 0.0 Baso % (Auto) 0.1 L Lymph # (Auto) 0.91 [place] # (Auto) 1.2 H Eos # (Auto) 0.0 Baso # (Auto) 0.0 Abs Immat Gran (auto) 0.04 H Absolute Neuts (auto) 8.0 H Absolute Nucleated RBC 0.0 Nucleated RBC % 0.0 Sodium 137 Potassium 3.5 Chloride 102 Carbon Dioxide 27 Anion Gap 8 BUN 14 D Creatinine 1.00 Estim Creat Clear Calc 79 Estimated GFR > 60 Glucose 120 H Calcium 8.6 Post-procedural complaints: none Patient Feedback: Patient satisfied with anesthetic care.
[2021-03-21 14:00] VITALS: BP 103/59; PULSE 105; RESP 14; TEMP 36.9; O2SAT 98
--- NOTE | 2021-03-21 14:00 | WPDPN ---
Progress Note: A&P Additional Plan POD 1 DOIG WELL. HE MAY BE DISCHARGED IF HE FEELS UP TO IT AFTER PT THIS AFTERNOON. HE WILL F/U IN 3 WEEKS. Exam Extrem: Other: VSS AFEBRILE DRESSING DRY NV INTACT NEG HOMANS SIGN Objective Data Vital Signs Vital Signs: Vital Signs - 24 hr 03/20/21 14:14 03/20/21 18:00 03/20/21 20:00 Temperature 36.4 C L 36.2 C L Pulse Rate 74 96 96 Respiratory Rate 16 16 16 Blood Pressure 116/66 127/74 Pulse Oximetry 100 99 99 03/20/21 22:00 03/21/21 02:14 03/21/21 06:14 Temperature 36.5 C 36.5 C 36.4 C L Pulse Rate 92 90 100 Respiratory Rate 16 16 18 Blood Pressure 110/55 L 117/59 L 122/59 L Pulse Oximetry 98 98 98 03/21/21 07:36 03/21/21 10:00 Temperature 36.4 C Pulse Rate 100 95 Respiratory Rate 18 14 Blood Pressure 103/59 L Pulse Oximetry 98 98 Intake/Output Intake/Output: Intake & Output 03/18/21 03/19/21 03/20/21 03/21/21 23:59 23:59 23:59 23:59 Intake Total 480 1700 Output Total 400 950 Balance 80 750 Meds/Results Medications: Active Medications Generic Name Dose Route Start Last Admin Trade Name Freq PRN Reason Stop Dose Admin Acetaminophen 650 mg 03/20/21 12:29 Acetaminophen 325 Mg Tablet PO Q12H PRN Mild Pain (1-3) Hydrocodone Bitart/Acetaminophen 1 tab 03/20/21 12:29 03/21/21 08:40 Hydrocodone/Acetaminophen (*Crx) 7.5-325 Mg Tablet PO 1 tab Q3H PRN Administration Pain Rated 4-6 Aspirin 650 mg 03/21/21 09:00 03/21/21 08:40 Aspirin 325 Mg Enteric Tablet PO 650 mg DAILY SURJIT Administration Atorvastatin Calcium 20 mg 03/21/21 09:00 03/21/21 08:40 Atorvastatin 20 Mg Tablet PO 20 mg DAILY SURJIT Administration Diazepam 5 mg 03/20/21 12:29 03/20/21 14:47 Diazepam (*Crx) 5 Mg Tablet PO 5 mg Q6H PRN Administration Anxiety/Muscle Spasm Diphenhydramine HCl 6.25 mg 03/20/21 12:29 Diphenhydramine Hcl Inj 50 Mg/Ml Vial IV PUSH Q5MIN PRN nausea/vomiting Docusate Sodium 100 mg 03/20/21 17:00 03/21/21 08:40 Docusate Sodium 100 Mg Capsule PO 100 mg BID SURJIT Administration Gabapentin 300 mg 03/20/21 21:00 03/20/21 20:43 Gabapentin 300 Mg Capsule PO 300 mg HS SURJIT Administration Hydroxyzine HCl 50 mg 03/20/21 12:29 Hydroxyzine Hcl 25 Mg Tablet PO Q4H PRN Itching Magnesium Hydroxide 30 ml 03/20/21 12:29 Magnesium Hydroxide Susp 30 Ml Udc PO BID PRN Constipation Melatonin 5 mg 03/20/21 21:00 03/20/21 20:43 Melatonin 5 Mg Tablet PO 5 mg HS SURJIT Administration Morphine Sulfate 3 mg 03/20/21 12:29 03/21/21 10:26 Morphine Sulfate (*Crx) 4 Mg/Ml Inj IV PUSH 3 mg Q3H PRN Administration Pain Rated 7-10 Naloxone HCl 0.1 mg 03/20/21 12:29 Naloxone Hcl 0.4 Mg/Ml Vial IV PUSH Q2M PRN Opiate Reversal Ondansetron HCl 4 mg 03/20/21 12:29 03/20/21 17:52 Ondansetron Inj 4 Mg/2 Ml Vial IV PUSH 4 mg Q4H PRN Administration Nausea And Vomiting Pantoprazole Sodium 40 mg 03/20/21 21:00 03/20/21 20:43 Pantoprazole 40 Mg Tablet PO 40 mg HS SURJIT Administration Radiology Results: ITS Impressions Hip X-Ray 03/20/21 10:50 IMPRESSION: 1. Total left hip arthroplasty in near-anatomic alignment. Labs Labs: Laboratory Results - last 24 hr 03/20/21 03/21/21 03/21/21 21:22 05:05 05:05 WBC 10.2 H RBC 3.41 L Hgb 11.3 L D 10.8 L Hct 33.6 L 31.7 L MCV 93.0 MCH 31.7 MCHC 34.1 RDW 12.8 Plt Count 209 MPV 9.1 Immature Gran % (Auto) 0.4 Neut % (Auto) 78.7 H Lymph % (Auto) 8.9 L [place] % (Auto) 11.9 H Eos % (Auto) 0.0 Baso % (Auto) 0.1 L Lymph # (Auto) 0.91 [place] # (Auto) 1.2 H Eos # (Auto) 0.0 Baso # (Auto) 0.0 Abs Immat Gran (auto) 0.04 H Absolute Neuts (auto) 8.0 H Absolute Nucleated RBC 0.0 Nucleated RBC % 0.0 Sodium 137 Potassium 3.5 Chloride 102 Carbon Dioxide 27 Anion
--- NOTE | 2021-03-21 14:07 | PM.DS ---
DS: Admitting Diagnosis Admitting Diagnosis Admitting Diagnosis: left hip ,djd DS: Discharge Diagnosis Discharge Diagnosis (1) History of hip replacement: Code(s): Z96.649 - Presence of unspecified artificial hip joint Status: Acute DS: Summary Hospital Course Reason for hospitalization: LEFT NITA Hospital Course: PATIENT WAS ADMITTED FOR LEFT NITA ON 03/20/21. HE DIS VERY WELL IN SURGERY. POSTOP HIS PAIN WAS CONTROLLED, HE WAS EATING WELL, AND HE MADE GOOD PROGRESS WITH PT. HE WOULD BE DC'D HOME WITH HOME NURSING AND PT AND WOULD F/U IN 3 WEEKS Time spent discussing smoking cessation with patient: 3 to 10 minutes Status at Discharge Functional status at discharge: uses cane/walker Overall status at discharge: patient is progressing back to baseline Time Spent with Patient Time attestation: Total time spent providing and/or coordinating discharge services: Time spent: Less than 30 minutes DS: Data Data Completed and Pending Labs on day of discharge: Labs from last 24 hours 03/21/21 03/21/21 03/20/21 05:05 05:05 21:22 WBC 10.2 H RBC 3.41 L Hgb 10.8 L 11.3 L D Hct 31.7 L 33.6 L MCV 93.0 MCH 31.7 MCHC 34.1 RDW 12.8 Plt Count 209 MPV 9.1 Immature Gran % (Auto) 0.4 Neut % (Auto) 78.7 H Lymph % (Auto) 8.9 L [place] % (Auto) 11.9 H Eos % (Auto) 0.0 Baso % (Auto) 0.1 L Lymph # (Auto) 0.91 [place] # (Auto) 1.2 H Eos # (Auto) 0.0 Baso # (Auto) 0.0 Abs Immat Gran (auto) 0.04 H Absolute Neuts (auto) 8.0 H Absolute Nucleated RBC 0.0 Nucleated RBC % 0.0 Sodium 137 Potassium 3.5 Chloride 102 Carbon Dioxide 27 Anion Gap 8 BUN 14 D Creatinine 1.00 Estim Creat Clear Calc 79 Estimated GFR > 60 Glucose 120 H Calcium 8.6 Discharge Plan Discharge Patient Disposition: Home Health Service Discharge Instructions: Post Op Total Hip Replacement Instructions Dr. Tucker Gaspar [phone] ? Your dressing will be changed prior to your discharge. You will be sent home with one additional dressing to be changed in 5 days by the home health RN. Your incision was closed with dermabond, allow the dermabond to fall off naturally and do not disrupt incision healing. ? You may shower with your dressing but do not submerge in a bath tub. ? Do not drive or operate machinery until you are released by Dr. Gaspar. ? Do not walk without a walker for any reason until you are released by Dr. Gaspar. ? Continue to apply ice to the hip intermittently for additional pain relief. Protect your skin with a towel or pillow case. ? Continue to follow strict total hip replacement precautions. ? Your follow up appointment is indicated in your discharge instructions. ? Your medications have been sent to your pharmacy. ? Please contact our office with any questions/concerns regarding your knee at [phone]. Patient Instructions: Antibiotic Form Stand Alone Forms: General Discharge Information Follow-up/Referrals: Tucker Gaspar MD [Physician] - Keep Reg. Scheduled Appt. Bruno Baez MD [Primary Care Provider] - Follow Up with Primary Dr (as needed. ) Discharge Medications: New oxycodone-acetaminophen [Percocet] 7.5-325 mg tablet 1 tablet PO Q6H PRN (Reason: pain) Qty: 60 RF: 0 Continued melatonin 10 mg tablet 5 mg PO HS RF: 0 duloxetine 40 mg capsule,delayed release(DR/EC) 40 mg PO DAILY Qty: 90 RF: 1 diphenhydramine HCl [Allergy (diphenhydramine)] 25 mg capsule 25 mg PO DAILY PRN (Reason: SEASONAL ALLERGIES) RF: 0 naproxen sodium 220 mg tablet 220 mg PO BID PRN (Reason: Pain) RF: 0 calcium carbonate-vitamin D3 [Calcium 600 with Vitamin D3] 600 mg(1,500mg) -500 unit capsule 1 cap PO DAILY RF: 0 turmeric 1,500 mg PO DAILY RF: 0 omega-3 fatty acids [Fish Oil Concentrate] 1,000 mg capsule 1,000 mg PO BID RF: 0 psyllium husk [Daily Fiber] 0.4 gram capsule 0.4 g
== END 2021-03-21 17:00 | disposition home health service (06) ==
LOC: ANHSURGERY 06:08 → ANH2MED 13:33
PROVIDERS: PCP Internal Medicine; Visit Provider Orthopaedic Surgery
PROC: (CPT 27130; principal; 2021-03-20 07:30)
DX: M16.12 Unilateral primary osteoarthritis, left hip (principal); E78.5 Hyperlipidemia, unspecified; K21.9 Gastro-esophageal reflux disease without esophagitis; F41.8 Other specified anxiety disorders; G47.33 Obstructive sleep apnea (adult) (pediatric); Z87.891 Personal history of nicotine dependence
CPT/HCPCS: 27130; 36415; 73501; 80048; 80307; 81001; 82040; 83036; 85014; 85018; 85025; 85610; 85730; 86850; 86900; 86901; 87081; 93005; 97110; 97116; 97161; 97165; 97530; 97535; A9270; C1776; C9803; J0171; J0690; J1100; J1170; J1200; J1885; J2250; J2270; J2405; J2704; J2710; J2795; J3010; J3480; J7120; U0003; U0005

== ENCOUNTER 2021-11-16 11:45 | Outpatient (CLI) | payer OTHER, SELFPAY ==
[2021-11-16 13:15] LABS: Add Urine Microscopic? NO; Appearance Urine Clear (Clear); Bilirubin Urine Negative (Negative); Blood Urine Negative (Negative); Color Urine Yellow (Yellow); Glucose Urine UA Negative (Negative); Ketones Urine Negative (Negative); Leukocyte Esterase Ur Negative LEU/UL (Negative); Nitrate Urine Negative (Negative); Protein Urine Negative (Negative); Specific Grav Ur 1.023 (1.001-1.035); Urobilinogen Urine Negative mg/dL (<2.0)
[2021-11-16 13:23] LABS: Estimated Glomerular Filt Rate > 60
[2021-11-16 13:27] LABS: Partial Thromboplastin Time 24.4 SECONDS (22.3-36.8); Prothrombin Time 12.7 Seconds (11.1-14.7)
[2021-11-16 13:34] LABS: Hemoglobin A1C 5.3 % (<5.7)
[2021-11-16 15:45] LABS: Urine Cotinine NEGATIVE
== END 2021-11-16 11:46 | disposition home or self-care (01) ==
LOC: ANHSURGERY 11:50
PROVIDERS: PCP Internal Medicine; Visit Provider Orthopaedic Surgery
DX: Z01.812 Encounter for preprocedural laboratory examination (principal); M17.11 Unilateral primary osteoarthritis, right knee; Z51.81 Encounter for therapeutic drug level monitoring; Z79.899 Other long term (current) drug therapy
CPT/HCPCS: 80307; 81003; 82565; 83036; 85610; 85730; 86850; 86900; 86901; 87081

== ENCOUNTER 2021-11-28 00:11 | Day surgery (SDC) | payer OTHER, SELFPAY ==
[2021-11-16 11:56] VITALS: BMI 28.6
--- NOTE | 2021-11-16 12:21 | PC.NURSE ---
Report to the Outpatient Waiting Room, entrance under the green pavilion located off [facility], at time _0900 on date 11/28/21 . OR Time: __1100 . - You and your visitor will be asked a series of questions to screen for COVID 19 for your protection. - A mask is required within the hospital. - NO VISITORS ALLOWED AT THIS TIME Preoperative COVID Testing Requirements: No COVID Test needed if: (proof is required; if not received patient will have Rapid Test prior to entry) - Patient has received COVID Vaccine at least 14 days prior to procedure date or - Patient has positive COVID test result within last 90 days of surgery date. COVID Test needed if above criteria is not met If not COVID vaccinated a COVID test must be conducted within 72 hours of surgery and patient is asked to isolate self from time of testing until procedure. You will go to the [facility] for your COVID testing. The [facility] is located at the corner of [address] [facility]. You will only be called if COVID results are positive and your surgeon may reschedule your elective surgery date. Patients may have clear liquids (water, carbonated beverages, clear teas, apple juice) until 3 hours prior to surgery with a maximum of 20 ounces. - No food from midnight until time of surgery - Infants may have breast milk until 4 hours before surgery, infant formula 6 hours prior to surgery. - Children will be allowed to drink immediately following surgery. If applicable, please bring a bottle or sippy cup to assist with drinking. Juice, water, soda, and popsicles are readily available. For infants on formula, please bring formula the day of surgery. Pacifiers are allowed. Take the following medications with a SIP of water the morning of surgery: _DULOXETINE Medications to discontinue per physician NAPROXEN PER ROHIT ANDERSON VITAMINS AND SUPPLEMENTS 3 DAYS PRE OP Date to take last dose____11/24/21 Please no make-up, nail korean, hairspray, perfume, deodorant, or body powder the day of surgery. No jewelry (including any body piercings) or valuables the day of surgery, leave them at home. Please take a shower or bath the night before, or the morning of, surgery with an antibacterial soap. Wear comfortable, loose fitting clothing. Children are encouraged to wear pajamas. - Jewelry must be removed prior to entering the operating room. Rings and piercings that are not removed may be cut off. - The hospital will not accept responsibility for valuables. - Please leave all valuables, including medications, at home the day of surgery. If you are going home after surgery, a licensed rail car driver must drive you home. - NO public transportation without another adult. - We recommend that an adult stay with you for 24 hours following discharge. - We also recommend that you do not drive, make important decision, drink alcoholic beverages, or take any drugs that were not prescribed by your health care provider for at least 24 hours after your discharge time. For Pediatric surgeries, we recommend two adults accompany the child home (only one inside the building at this time). Follow any additional instructions given to you from your surgeon. WRITEN instructions given to _PATIENT and asked if any additional questions and then verbalized understanding. Patient advised to call surgeon office or pre surgery nurse liaison [phone] if any additional questions.
[2021-11-16 12:37] VITALS: BP 124/82; PULSE 76; RESP 18; TEMP 37.1; O2SAT 99
--- NOTE | 2021-11-27 13:58 | WPDANESEPPF ---
Anes - Initial Pre Proc Eval Procedure: Operation Date: 11/28/21 11:00 Proposed Procedures p Right Total Knee Arthroplasty - Tucker Gaspar MD Date/Time: 11/27/21 13:58 Surgeon: Tucker Gaspar MD Pre Op Diagnosis: right knee DJD Patient Data Age: 60 Gender: M Height: 1.83 m Weight: 95.8 kg Last Vital Signs Temp 37.1 C 11/16/21 12:37 Pulse 76 11/16/21 12:37 Resp 18 11/16/21 12:37 BP 124/82 11/16/21 12:37 Pulse Ox 99 11/16/21 12:37 Allergies Allergy/AdvReac Type Severity Reaction Status Date / Time amoxicillin AdvReac Unknown Skin Verified 11/28/21 09:40 irritation-rash Penicillins AdvReac Unknown Rash Verified 11/28/21 09:40 Home Medications Medication Instructions Recorded Confirmed Type omega-3 fatty acids 1,000 mg 1,000 mg PO BID 12/07/19 11/28/21 History capsule psyllium husk 0.4 gram capsule 0.4 gm PO DAILY cap 12/07/19 11/28/21 History turmeric 1,000 mg PO DAILY 09/19/20 11/28/21 History melatonin 10 mg tablet 10 mg PO HS 11/06/20 11/28/21 History loratadine 10 mg PO DAILY 11/16/21 11/28/21 History naproxen 250 mg PO BID 11/16/21 11/28/21 History atorvastatin 20 mg tablet 20 mg PO DAILY #90 tablet 11/20/21 11/28/21 Rx calcium carbonate 600 mg-vitamin 1 cap PO DAILY 11/20/21 11/28/21 History D3 12.5 mcg (500 unit) capsule duloxetine 60 mg capsule,delayed 60 mg PO DAILY #90 cap 11/20/21 11/28/21 Rx release gabapentin 400 mg capsule 400 mg PO BID 90 Days #180 cap 11/20/21 11/28/21 Rx omeprazole 40 mg capsule,delayed 40 mg PO HS #90 cap 11/20/21 11/28/21 Rx release Patient hx anesthesia problems: none Family hx anesthesia problems: none Results Review: All pre-operative results and documents have been reviewed as part of the pre-operative evaluation. [facility] Past Medical History Medical History (Updated 11/27/21 @ 13:58 by Javier Keith DO) Adenomatous colon polyp Anxiety and depression Patel esophagus Diverticulosis Dizziness GERD (gastroesophageal reflux disease) High cholesterol HLD (hyperlipidemia) Left knee pain MARGARITA (obstructive sleep apnea) Restless leg syndrome Right knee pain Tobacco use Vision abnormalities Surgical History Surgical History H/O arthroscopic knee surgery H/O colonoscopy History of cataract surgery Family History Family History Mother Diabetes mellitus Father Carcinoma of colon Other Family history of cardiovascular disease Family history of malignant neoplasm Social History Social History Years smoked: 30 Smoking status: Former smoker Tobacco type: cigarettes Second hand tobacco smoke exposure: No Smoking end date: 01/29/21 Additional smoking assessment comments: DENIES ANY FORM OF TOBACCO USE Alcohol intake: never Substance use: never Substance use type: does not use Living arrangements: with family Gender identity (if verbalized by the patient): Male Sexual Orientation (if Verbalized by the Patient): Straight or Heterosexual Spiritual care concerns: No Anes - Eval Final PreProcedure Day of Procedure 11/27/21 13:58 Patient weight: overweight Heart: regular rate and rhythm Lungs: clear to auscultation and normal air movement Airway: Mallampati scale class II Neurological: alert and oriented Last oral intake: >/= 8 hours ASA classification: III Emergent: no Anesthetic plan: proceed Anesthesia type and monitoring: general LMA and standard monitoring Results Review: All pre-operative results and documents have been reviewed as part of the pre-operative evaluation. Informed Consent: The patient's anesthetic plan and its attendant risks and benefits were discussed with the patient/family/POA. Questions were solicited and answers provided to the satisfaction of the patient/family/POA.
--- NOTE | 2021-11-27 13:59 | WPDANESPNB ---
Anes - Peripheral Nerve Block Date/Time: 11/27/21 13:59 I have discussed with the patient/family/POA the placement of a peripheral nerve block for post-operative pain management, including associated risks, benefits, complications, and side effects. Alternative methods of post-operative analgesia were detailed. Questions were solicited and answers provided to the satisfaction of the patient/family/POA. Time-Out: A pre-procedural Time-Out was completed immediately before starting the procedure and confirmed: Patient Identification, Site, Procedure, Patient Position and the Availability of Requisite Equipment. Clinical Indications: Acute post-operative pain management requested by the operative surgeon. Nerve Block Insertion Note Anes-nerve block: adductor canal right Patient position: supine Skin prep: chlorhexidine Needle: 22 gauge, stimulating, insulated echogenic needle. Needle length: 80 mm Technique: ultrasound Injectate: bupivacaine 0.5% with epi 5 mcg/ml (30cc - no epi) Observations: tolerated well Complications: none Procedure start time:: 1032 Procedure end time:: 1035
[2021-11-28] VITALS (16 sets, daily range): BP systolic 107–131; BP diastolic 53–87; PULSE 77–91; RESP 14–20; TEMP 36.5–37.9; O2SAT 92–99
--- NOTE | ~2021-11-28 | XR_ITS ---
EXAMINATION: XR knee RT 2V DATE: 11/28/2021 13:36 INDICATION: Total right knee arthroplasty. Postop. TECHNIQUE: 2 views of right knee were obtained. COMPARISON: Right knee radiographs 08/27/2021 FINDINGS: There is a total right knee arthroplasty without patellar resurfacing in near-anatomic alig nment. Osteophytes of patella have been resected. No fracture. There is gas in the soft tissues, cons istent with recent surgery. IMPRESSION: 1. Total right knee arthroplasty in near-anatomic alignment. Reviewed, dictated and finalized at location E. OR ACCOUNTS PAYABLE SPECIALIST
--- NOTE | 2021-11-28 07:22 | WPDHPUPDATE1 ---
History and Physical Update Update Date/Time: 11/28/21 07:22 History and Physical has been reviewed, including an updated exam of the patient. There are NO changes in the patient's condition. Risks, benefits, and alternatives have been discussed and questions answered. Patient agrees to proceed with procedure.
[2021-11-28] MEDS: ACETAMINOPHEN 500 MG TABLET 1000 MG PO ×2 (09:23→21:05)
[2021-11-28] MEDS: LACTATED RINGERS 1,000 ML 30 ML IV CONT (09:45)
[2021-11-28] MEDS: TRANEXAMIC ACID 1,000MG/ISO100 1,000 MG/100 ML BAG 200 MG IVPB (10:26)
[2021-11-28] MEDS: ceFAZolin 2 GM/D5W 50 ML 2 GM/50 ML BAG IVPB ×2 (10:58→14:57)
[2021-11-28] MEDS: TRANEXAMIC ACID 1,000 MG/10 ML AMPUL 1000 MG IV PUSH (12:38)
--- NOTE | 2021-11-28 13:31 | SUR.PHASEI ---
[id number] 2 VIEWS OF XRAY TAKEN OF RT KNEE.
--- NOTE | 2021-11-28 13:40 | W.PM.PROC2 ---
Procedure Note - Detailed Date of Procedure 11/28/21 Pre-op Diagnosis right knee DJD Post-op Diagnosis same Procedure Performed R TKA Surgeon Tucker Gaspar MD Anesthesia general Description of Procedure THE RIGHT KNEE WAS PREPPED AND DRAPED IN THE STERILE FASHION. THERE WAS A 15 DEGREE FLEXION CONTRACTURE. A MIDLINE SKIN INCISION WAS MADE. A MEDIAL PARAPATELLAR ARTHROTOMY WAS MADE. THE PATELLA WAS EVERTED. THERE WAS TRICOMPARTMENT DJD. THERE WAS MINIMAL PATELLA DJD. AN INTRAMEDULLARY NGUYEN WAS PLACED IN THE FEMUR. A DISTAL FEMORAL CUT WAS MADE IN 5 DEGREES OF VALGUS REMOVING APPROXIMATELY 11 MM OF BONE FROM THE DISTAL FEMUR. THE FEMUR WAS SIZED TO 67.5. A 67.5 FEMORAL CUTTING BLOCK WAS PLACED IN 3 DEGREES OF EXTERNAL ROTATION AND IN ALIGNMENT WITH RACHEL'S LINE AND THE TRANSEPICONDYLAR AXIS. ANTERIOR POSTERIOR AND CHAMFER CUTS WERE MADE. THE CUTS WERE EXCELLENT. NEXT AN INTRAMEDULLARY CUTTING GUIDE WAS PLACED IN THE TIBIA. A TRANS TIBIAL CUT WAS MADE ALONG THE LONG AXIS OF THE TIBIA. APPROXIMATELY 10 MM OF BONE WAS REMOVED FROM THE HIGH SIDE OF THE TIBIA. THE TIBIA WAS THEN PLANED TO A SMOOTH SURFACE. POSTERIOR FEMORAL OSTEOPHYTES WERE REMOVED FROM THE FEMORAL CONDYLES. A 79TIBIAL TRIAL WAS PLACED IN ALIGNMENT WITH THE 1/3 MEDIAL ASPECT OF THE TIBIAL TUBERCLE. THEN A 67.5 FEMORAL TRIAL COMPONENT WAS PLACED. BOTH HAD EXCELLENT FITS. EVENTUALLY A 12MM CR POLYETHYLENE TRIAL COMPONENT WAS PLACED. THE KNEE WAS TAKEN THROUGH A RANGE OF MOTION. THE KNEE CAME OUT TO FULL EXTENSION. THERE WAS NO ABNORMAL TILT TO THE PATELLA. THERE WAS GOOD A/P AND VARUS/VALGUS STABILITY. THERE WAS NO EXCESSIVE ROLL BACK WITH FLEXION. THE TRIAL COMPONENTS WERE REMOVED. THEN A 67.5 FEMORAL COMPONENT AND 79 TIBIAL COMPONENT WITH A 12 CR POLYETHYLENE COMPONENT WERE CEMENTED INTO PLACE. ONCE THE CEMENT WAS HARD THE KNEE WAS TAKEN THROUGH A ROM AGAIN AND FOUND TO BE STABLE WITH NO PATELLA TILT NO EXCESSIVE ROLL BACK WITH FLEXION AND GOOD STABILITY WITH COMPLETE AND FULL EXTENSION. THE KNEE WAS IRRIGATED WITH STERILE BETADINE AND WATER FOR ABOUT 3 MINUTES. THE BLEEDERS WERE CAUTERIZED. THE ARTHROTOMY WAS REPAIRED WITH NUMBER 1 VICRYL. THE SUB CUTANEOUS LAYER WITH 2-0 VICRYL AND THE SKIN WITH SETH. THE WOUND WAS WASHED AND A STERILE DRESSING WAS APPLIED. PATIENT WAS EXTUBATED. Estimated Blood Loss -50.0 Pathology none sent Complications No immediate complications Condition stable Disposition PACU
[2021-11-28] MEDS: fentaNYL CITRATE INJ (*CRX) 100 MCG/2 ML VIAL 25 MCG IV PUSH ×5 (13:43→14:32)
[2021-11-28] MEDS: SODIUM CHLORIDE 0.9% IV 1,000 ML 125 ML IV CONT (14:57)
--- NOTE | 2021-11-28 15:43 | ADMGEN ---
This patient, Bryant Bacon, was admitted to [facility] Surgery-6. Patient/family oriented to hospital policies and general routines including ID bracelet, bed and alarms, visiting hours, pain management, procedures, bathroom and other care routines, personal items, smoking policy, room service/diet, and visiting hours. Information on how to activate the Rapid Response Team has been discussed. Patient/Family are encouraged to report perceived risks to care and to ask questions if they do not understand what they are told or what they should do.
[2021-11-28] MEDS: GABAPENTIN 400 MG CAPSULE PO (16:56)
[2021-11-28] MEDS: OMEGA 3 POLYUNSAT FATTY ACIDS 1 GM CAP PO (16:56)
[2021-11-28] MEDS: CELECOXIB 200 MG CAPSULE PO (16:57)
[2021-11-28] MEDS: SENNA/DOCUSATE SODIUM TABLET 2 TAB PO (16:57)
[2021-11-28] MEDS: MELATONIN 5 MG TABLET 10 MG PO (20:59)
[2021-11-28] MEDS: PANTOPRAZOLE 40 MG TABLET PO (20:59)
[2021-11-28] MEDS: oxyCODONE HCL (*CRX) 5 MG TAB IR 10 MG PO (21:00)
[2021-11-29] MEDS: ceFAZolin 2 GM/D5W 50 ML 2 GM/50 ML BAG IVPB ×2 (01:56→10:30)
[2021-11-29] MEDS: oxyCODONE/ACETAMINOPHEN (*CRX) 5-325 MG TABLET 1 TABLET PO ×2 (01:59→09:25)
[2021-11-29 02:00] VITALS: BP 105/70; PULSE 80; RESP 16; TEMP 37.8; O2SAT 96
[2021-11-29 06:00] VITALS: BP 104/65; PULSE 75; RESP 20; TEMP 37.2; O2SAT 96
[2021-11-29 06:04] LABS: Basophils Percent Auto 0.3 % (0.2-1.2); Eosinophils Absolute Auto 0.1 K/mm3 (0-0.3); Eosinophils Percent Auto 0.8 % (0-4.4); Hematocrit 36.6 % (42.0-52.0); Hemoglobin 12.2 g/dL (14.0-18.0); Immature Granulocyte Absolute 0.04 K/mm3 (0.00-0.031); Immature Granulocyte Percent A 0.4 % (0-0.5); Lymphocytes Absolute Auto 1.87 K/mm3 (0.9-3.2); Lymphocytes Percent Auto 17.8 % (18.3-44.2); Mean Corpuscular HGB Conc 33.3 g/dl (32-36); Mean Corpuscular Volume 92.9 fl (80-100); Mean Platelet Volume 9.4 fl (7.4-10.4); Monocytes Percent Auto 9.6 % (2.6-8.5); Neutrophils Absolute Auto 7.5 K/mm3 (1.3-6.7); Neutrophils Percent Auto 71.1 % (45.5-73.1); Platelet Count Result 191 k/mm3 (150-375); Red Blood Count 3.94 M/mm3 (4.6-6.20); Red Cell Distribution Width 12.5 % (11.5-14.5); White Blood Count 10.5 K/mm3 (4.5-10.0)
[2021-11-29 06:19] LABS: Anion Gap 1 mmol/L (8-16); Blood Urea Nitrogen 19 mg/dL (9-20); Calcium 8.4 mg/dL (8.4-10.2); Carbon Dioxide 30 mmol/L (22-30); Chloride 104 mmol/L (98-107); Estimated CRCL calculation 69 ml/min; Estimated Glomerular Filt Rate > 60; Glucose 94 mg/dL (65-110); Sodium 135 mmol/L (137-145)
[2021-11-29 08:00] VITALS: BP 105/66; PULSE 80; RESP 20; TEMP 36.9; O2SAT 96
[2021-11-29] MEDS: SENNA/DOCUSATE SODIUM TABLET 2 TAB PO (08:44)
[2021-11-29] MEDS: ASPIRIN 325 MG ENTERIC TABLET 650 MG PO (08:44)
[2021-11-29] MEDS: OMEGA 3 POLYUNSAT FATTY ACIDS 1 GM CAP PO (08:44)
[2021-11-29] MEDS: LORATADINE 10 MG TABLET PO (08:44)
[2021-11-29] MEDS: polyethylene glycoL 3350 17 GM POWD.PACK PO (08:45)
[2021-11-29] MEDS: ATORVASTATIN 20 MG TABLET PO (08:45)
[2021-11-29] MEDS: GABAPENTIN 400 MG CAPSULE PO (08:45)
[2021-11-29] MEDS: CELECOXIB 200 MG CAPSULE PO (08:45)
[2021-11-29] MEDS: oxyCODONE HCL (*CRX) 5 MG TAB IR PO (10:42)
--- NOTE | 2021-11-29 12:24 | PC.NURSE ---
OFFERED PERSONAL HYGIENE PT SAID HE WANT TO WAIT PLANNING ON BEING DISCARGED
--- NOTE | 2021-11-29 13:14 | PM.PNORT ---
Progress Note: A&P Additional Plan POD 1 DOING WELL. OK TO DC HOME F/U IN 3 WEEKS Subjective Subjective Date/Time Seen: 11/29/21 13:14 POD 1 DOING WELL. NO CALF PAIN Exam Extrem: Other: VSS AFEBRILE DRESSING DRY NV INTACT NEG HOMANS SIGN Objective Data Vital Signs Vital Signs: Vital Signs - 24 hr 11/28/21 13:25 11/28/21 13:40 11/28/21 13:55 Temperature 36.5 C Pulse Rate 85 88 89 Respiratory Rate 14 18 18 Blood Pressure 110/77 111/70 123/75 Pulse Oximetry 99 97 98 11/28/21 14:10 11/28/21 14:13 11/28/21 14:25 Temperature Pulse Rate 87 86 Respiratory Rate 14 16 Blood Pressure 131/76 127/84 Pulse Oximetry 99 92 97 11/28/21 14:40 11/28/21 14:50 11/28/21 15:05 Temperature 36.9 C 36.5 C 36.9 C Pulse Rate 85 77 79 Respiratory Rate 14 16 16 Blood Pressure 120/79 128/73 128/72 Pulse Oximetry 95 98 99 11/28/21 15:20 11/28/21 15:25 11/28/21 15:35 Temperature Pulse Rate 85 Respiratory Rate 16 Blood Pressure 124/68 Pulse Oximetry 99 95 95 11/28/21 16:35 11/28/21 21:05 11/28/21 22:00 Temperature 37.9 C H 37.9 C H Pulse Rate 91 84 Respiratory Rate 14 20 Blood Pressure 111/69 107/53 L Pulse Oximetry 97 96 11/29/21 02:00 11/29/21 06:00 11/29/21 08:00 Temperature 37.8 C H 37.2 C 36.9 C Pulse Rate 80 75 80 Respiratory Rate 16 20 20 Blood Pressure 105/70 104/65 105/66 Pulse Oximetry 96 96 96 Intake/Output Intake/Output: Intake & Output 11/26/21 11/27/21 11/28/21 11/29/21 23:59 23:59 23:59 23:59 Intake Total 540 590 Balance 540 590 Meds/Results Medications: Active Medications Generic Name Dose Route Start Last Admin Trade Name Freq PRN Reason Stop Dose Admin Acetaminophen 1,000 mg 11/28/21 14:47 11/28/21 21:05 Acetaminophen 500 Mg Tablet PO 1,000 mg Q6H PRN Administration Pain Rated 1-3 Aspirin 650 mg 11/29/21 09:00 11/29/21 08:44 Aspirin 325 Mg Enteric Tablet PO 650 mg DAILY SURJIT Administration Atorvastatin Calcium 20 mg 11/29/21 09:00 11/29/21 08:45 Atorvastatin 20 Mg Tablet PO 20 mg DAILY SURJIT Administration Calcium Carbonate 500 mg 11/29/21 09:00 11/29/21 08:45 Calcium/Vitamin D 500 Mg Tablet PO 12/29/21 08:59 500 mg DAILY SURJIT Administration Celecoxib 200 mg 11/28/21 17:00 11/29/21 08:45 Celecoxib 200 Mg Capsule PO 200 mg BIDWM SURJIT Administration Diazepam 5 mg 11/28/21 14:47 Diazepam (*Crx) 5 Mg Tablet PO Q8H PRN Spasms Diphenhydramine HCl 25 mg 11/28/21 14:47 Diphenhydramine Hcl Inj 50 Mg/Ml Vial IV PUSH Q6H PRN Itching Fish Oil 1 gm 11/28/21 17:00 11/29/21 08:44 [place] 3 Polyunsat Fatty Acids 1 Gm Cap PO 1 gm BID SURJIT Administration Gabapentin 400 mg 11/28/21 17:00 11/29/21 08:45 Gabapentin 400 Mg Capsule PO 400 mg BID SURJIT Administration Loratadine 10 mg 11/29/21 09:00 11/29/21 08:44 Loratadine 10 Mg Tablet PO 10 mg DAILY SURJIT Administration Melatonin 10 mg 11/28/21 21:00 11/28/21 20:59 Melatonin 5 Mg Tablet PO 10 mg HS SURJIT Administration Naloxone HCl 0.1 mg 11/28/21 14:47 Naloxone Hcl 0.4 Mg/Ml Vial IV PUSH Q2M PRN Opiate Reversal Ondansetron HCl 4 mg 11/28/21 14:47 Ondansetron Inj 4 Mg/2 Ml Vial IV PUSH Q4H PRN Nausea And Vomiting Oxycodone HCl 10 mg 11/28/21 14:47 11/28/21 21:00 Oxycodone Hcl (*Crx) 5 Mg Tab Ir PO 10 mg Q4H PRN Administration Pain Rated 7-10 Oxycodone/Acetaminophen 1 tablet 11/28/21 14:47 11/29/21 09:25 Oxycodone/Acetaminophen (*Crx) 5-325 Mg Tablet PO 1 tablet Q4H PRN Administration Pain Rated 4-6 Pantoprazole Sodium 40 mg 11/28/21 21:00 11/28/21 20:59 Pantoprazole 40 Mg Tablet PO 12/28/21 20:59 40 mg HS SURJIT Administration Polyethylene Glycol 17 gm 11/29/21 09:00 11/29/21 08:45 Polyethylene Glycol 3350 17 Gm Powd.Pack PO 17 gm QAM SURJIT Administration Senna/Docusate Sodium 2 tab 11/28/21 17:00
--- NOTE | 2021-11-29 13:15 | PM.DS ---
DS: Admitting Diagnosis Discharge Date 11/29/21 Admitting Diagnosis R KNEE DJD DS: Discharge Diagnosis Discharge Diagnosis (1) DJD (degenerative joint disease) of knee: Qualifiers: Osteoarthritis type: primary Laterality: right Qualified Code(s): M17.11 - Unilateral primary osteoarthritis, right knee Code(s): M17.10 - Unilateral primary osteoarthritis, unspecified knee Status: Acute DS: Summary Hospital Course Hospital Course: PATIENT WAS ADMITTED S/P TOTAL R TKA ARTHROPLASTY FOR POSTOPERATIVE MEDICAL MANAGEMENT, PAIN CONTROL AND MOBILIZATION WITH PHYSICAL AND OCCUPATIONAL THERAPY. THE PATIENT PROGRESSED WELL WITH PT/OT. LABS AND VITALS REMAINED STABLE AND PAIN WELL CONTROLLED. THE PATIENT HAS BEEN CLEARED TO BE DISCHARGED HOME. FOLLOW UP APPOINTMENT SCHEDULED. DISCHARGE INSTRUCTIONS DISCUSSED AT LENGTH WITH THE PATIENT. MEDICATIONS REVIEWED. Time spent discussing smoking cessation with patient: 3 to 10 minutes Status at Discharge Functional status at discharge: uses cane/walker Overall status at discharge: patient is not back to baseline Time Spent with Patient Time attestation: Total time spent providing and/or coordinating discharge services: Time spent: Less than 30 minutes DS: Data Data Completed and Pending Labs on day of discharge: Labs from last 24 hours 11/29/21 11/29/21 05:42 05:42 WBC 10.5 H RBC 3.94 L Hgb 12.2 L Hct 36.6 L MCV 92.9 MCH 31.0 MCHC 33.3 RDW 12.5 Plt Count 191 MPV 9.4 Immature Gran % (Auto) 0.4 Neut % (Auto) 71.1 Lymph % (Auto) 17.8 L [place] % (Auto) 9.6 H Eos % (Auto) 0.8 Baso % (Auto) 0.3 Lymph # (Auto) 1.87 [place] # (Auto) 1.0 H Eos # (Auto) 0.1 Baso # (Auto) 0.0 Abs Immat Gran (auto) 0.04 H Absolute Neuts (auto) 7.5 H Absolute Nucleated RBC 0.0 Nucleated RBC % 0.0 Sodium 135 L Potassium 4.0 Chloride 104 Carbon Dioxide 30 Anion Gap 1 L BUN 19 Creatinine 1.10 Estim Creat Clear Calc 69 Estimated GFR > 60 Glucose 94 Calcium 8.4 Discharge Plan Discharge Attending physician on discharge: Tucker Gaspar Discharging Clinician: Tucker Gaspar Patient Disposition: Home Health Service Activity: may shower, no driving and follow weight bearing status Diet: as tolerated Wound Care Instructions: follow printed instructions Discharge Instructions: Per Care Coordination, patient to discharge with [facility] ) for PT/OT and intermediate services. Please fax discharge instructions and medication sheets to [phone]. Remove the Scopolamine patch that was placed behind your ear in 72 hours or less. Wash your hands after touching. Patient Instructions: Antibiotic Form, Aspirin (By mouth) Stand Alone Forms: General Discharge Information, General Discharge Instructions Follow-up/Referrals: Tucker Gaspar MD [Physician] - 3 Weeks Discharge Medications: New oxycodone-acetaminophen [Percocet] 5-325 mg tablet 1 tablet PO Q6H PRN (Reason: pain) Qty: 50 RF: 0 Continued melatonin 10 mg tablet 10 mg PO HS RF: 0 turmeric 1,000 mg PO DAILY RF: 0 calcium carbonate-vitamin D3 [Calcium 600 with Vitamin D3] 600 mg-12.5 mcg (500 unit) capsule 1 cap PO DAILY RF: 0 omega-3 fatty acids [Fish Oil Concentrate] 1,000 mg capsule 1,000 mg PO BID RF: 0 psyllium husk [Daily Fiber] 0.4 gram capsule 0.4 gm PO DAILY RF: 0 gabapentin 400 mg capsule 400 mg PO BID 90 Days Qty: 180 RF: 1 duloxetine 60 mg capsule,delayed release(DR/EC) 60 mg PO DAILY Qty: 90 RF: 1 omeprazole 40 mg capsule,delayed release(DR/EC) 40 mg PO HS Qty: 90 RF: 1 atorvastatin 20 mg tablet 20 mg PO DAILY Qty: 90 RF: 1 loratadine 10 mg Tablet 10 mg PO DAILY RF: 0 Discontinued naproxen 250 mg Tablet 250 mg PO BID RF: 0 Date of admission: 11/28/21 14:47 Primary Care Provider: Bruno Baez Admitting Provide
[2021-11-29 14:45] VITALS: BP 105/59; PULSE 104; RESP 18; TEMP 37.2; O2SAT 98
--- NOTE | 2021-11-29 15:01 | PC.NURSE ---
RN changed mepilex at discharge and sent patient home with an extra one.
--- NOTE | 2021-11-29 15:36 | WPDANESPN ---
Anes - Prog Note Post-Op Date/Time: 11/29/21 15:36 Cardiovascular status: normal Respiratory status: normal Airway patency: baseline Mental status: baseline Post-Op hydration status: normal Vital Signs: Last Vital Signs Temp 37.2 C 11/29/21 14:45 Pulse 104 H 11/29/21 14:45 Resp 18 11/29/21 14:45 BP 105/59 L 11/29/21 14:45 Pulse Ox 98 11/29/21 14:45 Pain Score (VAS): 0 I/O: Intake & Output 11/28/21 11/29/21 11/29/21 23:59 07:59 15:59 Intake Total 240 50 540 Balance 240 50 540 Laboratory Tests 11/29/21 05:42 11/29/21 05:42 11/29/21 11/29/21 05:42 05:42 WBC 10.5 H RBC 3.94 L Hgb 12.2 L Hct 36.6 L MCV 92.9 MCH 31.0 MCHC 33.3 RDW 12.5 Plt Count 191 MPV 9.4 Immature Gran % (Auto) 0.4 Neut % (Auto) 71.1 Lymph % (Auto) 17.8 L [place] % (Auto) 9.6 H Eos % (Auto) 0.8 Baso % (Auto) 0.3 Lymph # (Auto) 1.87 [place] # (Auto) 1.0 H Eos # (Auto) 0.1 Baso # (Auto) 0.0 Abs Immat Gran (auto) 0.04 H Absolute Neuts (auto) 7.5 H Absolute Nucleated RBC 0.0 Nucleated RBC % 0.0 Sodium 135 L Potassium 4.0 Chloride 104 Carbon Dioxide 30 Anion Gap 1 L BUN 19 Creatinine 1.10 Estim Creat Clear Calc 69 Estimated GFR > 60 Glucose 94 Calcium 8.4 Post-procedural complaints: none Patient Feedback: Patient satisfied with anesthetic care.
== END 2021-11-29 14:55 | disposition home health service (06) ==
LOC: ANHSURGERY 14:51 → ANHSUROVER 15:51
PROVIDERS: PCP Internal Medicine; Visit Provider Orthopaedic Surgery
PROC: (CPT 27447; principal; 2021-11-28 11:00)
DX: M17.11 Unilateral primary osteoarthritis, right knee (principal); M25.562 Pain in left knee; F41.8 Other specified anxiety disorders; K22.70 Barrett's esophagus without dysplasia; K57.90 Diverticulosis of intestine, part unspecified, without perforation or abscess without bleeding; E78.00 Pure hypercholesterolemia, unspecified; G47.33 Obstructive sleep apnea (adult) (pediatric); G89.18 Other acute postprocedural pain; Z79.82 Long term (current) use of aspirin; Z87.891 Personal history of nicotine dependence
CPT/HCPCS: 27447; 64447; 36415; 73560; 80048; 80307; 81003; 82565; 83036; 85025; 85610; 85730; 86850; 86900; 86901; 87081; 97110; 97161; 97165; 97535; A9270; C1713; C1776; J0171; J0330; J0690; J1170; J1885; J2250; J2270; J2405; J2704; J2795; J3010; J7030; J7120

== ENCOUNTER → 2022-05-24 08:53 | Outpatient (CLI) | payer OTHER, SELFPAY ==
--- NOTE | ~2022-05-24 | CT_ITS ---
EXAMINATION: CT brain wo con DATE: 05/24/2022 09:04 INDICATION: Dizziness, giddiness. Lightheadedness. Buzzing around head for one year. Forgetfulness. TECHNIQUE: Computed tomography (CT) of the head was performed without intravenous contrast. The mA wa s adjusted according to patient size. Iterative reconstruction technique was employed. Exam dose: 59 9.57 mGy-cm total exam DLP. COMPARISON: None FINDINGS: Bilateral carotid siphon internal carotid artery calcifications and vertebral and basilar a rtery calcifications. No intracranial mass lesion or hemorrhage or cerebrovascular accident is detected. No midline shift o r mass effect. No subdural or epidural hematoma. The orbital contents are unremarkable. The mastoid air cells and included paranasal sinuses are normally developed and aerated. No fracture or bone destruction of the cranial vault. IMPRESSION: Cerebral atherosclerosis No significant intracranial abnormality is noted otherwise Reviewed, dictated and finalized at Location [facility]. Reviewed, dictated and finalized at location B.
== END ==
PROVIDERS: PCP Internal Medicine; Visit Provider Internal Medicine
DX: R42 Dizziness and giddiness (principal); I67.2 Cerebral atherosclerosis
CPT/HCPCS: 70450

== ENCOUNTER → 2022-06-04 09:50 | Outpatient (CLI) | payer OTHER, SELFPAY ==
--- NOTE | ~2022-06-04 | US_ITS ---
US abdomen complete EXAMINATION: US Abdomen Complete INDICATION: Epigastric pain and reflux PROCEDURE: Realtime High Resolution abdomen ultrasound. COMPARISON: No prior studies for comparison FINDINGS: There is gallbladder debris, consistent with sludge. No definite gallstones, gallbladder wa ll thickening or pericholecystic fluid. Common bile duct measures 5 mm. Liver echotexture within normal limits without focal mass. Pancreas within normal limits. Pancreati c tail is obscured by bowel gas. Spleen is unremarkeable. Renal echotexture is within normal limits bilaterally without hydronephrosis, contour deforming mass or renal stone. Right kidney measures 10.6 cm. Left kidney measures 10.9 cm. Visualized aspects of the aorta and IVC are within normal limits. Portal vein is patent. No sonograph ic Bella's sign indicated by the technologist. IMPRESSION: 1: Gallbladder sludge. Otherwise, unremarkable abdominal ultrasound. Reviewed, dictated and finalized at location B.
== END ==
PROVIDERS: PCP Internal Medicine; Visit Provider Nurse Practitioner
DX: R10.13 Epigastric pain (principal)
CPT/HCPCS: 76700

== ENCOUNTER → 2022-07-03 13:45 | Outpatient (CLI) | payer OTHER, SELFPAY ==
--- NOTE | ~2022-07-03 | CT_ITS ---
EXAMINATION: CT lung screening DATE: 07/03/2022 13:57 INDICATION: Personal history of nicotine dependence, current smoker with 30 pack year history TECHNIQUE: Computed tomography (CT) of the chest was performed without intravenous contrast. The dose -length product (DLP) was 191.86 mGy-cm. Automated exposure control and iterative reconstruction tech [employer] were employed. COMPARISON: 12/04/2020 FINDINGS: There is mild emphysema. No suspicious pulmonary nodules are identified. No pleural effusio n or pneumothorax. No pathologically enlarged thoracic lymph nodes are identified. The heart size is normal. Calcified coronary artery atherosclerosis is noted. There is mild thoracic spondylosis. IMPRESSION: 1. Lung-RADS category 1: Negative. Continue annual screening with noncontrast low-dose chest CT in 12 months. Reviewed, dictated and finalized at location B. IMPRESSION: 1. Lung-RADS category 1: Negative. Continue annual screening with noncontrast l ow-dose chest CT in 12 months.
== END ==
PROVIDERS: PCP Internal Medicine; Visit Provider Internal Medicine
DX: Z09 Encounter for follow-up examination after completed treatment for conditions other than malignant neoplasm (principal); Z87.891 Personal history of nicotine dependence
CPT/HCPCS: 71271

== ENCOUNTER 2023-06-03 18:56 | Emergency (ER) | payer OTHER, SELFPAY ==
--- NOTE | ~2023-06-03 | CT_ITS ---
EXAMINATION: CT abdomen pelvis w con DATE: 06/04/2023 00:04 INDICATION: Abdominal pain. TECHNIQUE: Computed tomography (CT) of the abdomen and pelvis was performed with 100 mL Omnipaque 350 intravenous contrast. Automated exposure control and iterative reconstruction technique were employe d. The dose-length product was 1242.47 mGy-cm. COMPARISON: Chest CT 07/03/2022 FINDINGS: The visualized portions of the lung bases demonstrate mild atelectasis. No pleural effusion . The heart size is normal. No pericardial effusion. There are cysts in the liver measuring up to 5 m m. The gallbladder is distended. There is a gallstone in the gallbladder. Gallbladder wall thickening is noted. The spleen, pancreas, adrenal glands, and kidneys are normal. There are bilateral inguinal hernias containing fat. There is diverticulosis of the colon without evidence of diverticulitis. The re are no dilated loops of bowel. The appendix is normal. Aortic atherosclerosis is noted. There are no pathologically enlarged lymph nodes. There is no ascites. There is a left hip arthroplasty. There is severe lumbar spondylosis. There is a chronic burst fracture of L3 superior endplate. There is a c hronic compression fracture of T10. IMPRESSION: 1. Distended gallbladder with gallstone in gallbladder wall thickening, consistent with acute cholecy stitis. Reviewed, dictated and finalized at location A. IMPRESSION: 1. Distended gallbladder with gallstone in gallbladder wall thickening, consist ent with acute cholecystitis.
[2023-06-03 18:59] VITALS: BP 129/74; PULSE 78; RESP 20; TEMP 36.8; O2SAT 100
[2023-06-03 20:06] LABS: Basophils Percent Auto 0.2 % (0.2-1.2); Eosinophils Absolute Auto 0.1 K/mm3 (0-0.3); Hematocrit 44.9 % (42.0-52.0); Hemoglobin 15.3 g/dL (14.0-18.0); Immature Granulocyte Absolute 0.04 K/mm3 (0.00-0.031); Immature Granulocyte Percent A 0.3 % (0-0.5); Lymphocytes Absolute Auto 0.91 K/mm3 (0.9-3.2); Lymphocytes Percent Auto 7.2 % (18.3-44.2); Mean Corpuscular HGB Conc 34.1 g/dl (32-36); Mean Corpuscular Hemoglobin 31.4 pg (26-34); Mean Platelet Volume 9.3 fl (7.4-10.4); Monocytes Absolute Auto 0.9 K/mm3 (0.1-0.6); Monocytes Percent Auto 7.4 % (2.6-8.5); Neutrophils Absolute Auto 10.6 K/mm3 (1.3-6.7); Neutrophils Percent Auto 83.9 % (45.5-73.1); Platelet Count Result 279 k/mm3 (150-375); Red Blood Count 4.88 M/mm3 (4.6-6.20); Red Cell Distribution Width 12.2 % (11.5-14.5); White Blood Count 12.6 K/mm3 (4.5-10.0)
[2023-06-03 20:15] LABS: Alanine Aminotransferase 26 U/L (6-50); Albumin Level 4.8 g/dL (3.5-5.1); Alkaline Phosphatase 65 U/L (38-126); Anion Gap 17 mmol/L (8-16); Aspartate Amino Transferase 25 U/L (17-59); Bilirubin,Total 0.9 mg/dL (0.2-1.3); Blood Urea Nitrogen 22 mg/dL (9-20); Calcium 9.6 mg/dL (8.4-10.2); Carbon Dioxide 26 mmol/L (22-30); Chloride 94 mmol/L (98-107); Estimated CRCL calculation 62 ml/min; Estimated Glomerular Filt Rate > 60; Glucose 141 mg/dL (65-110); Lipase 56 U/L (23-300); Potassium 3.6 mmol/L (3.4-5.0); Sodium 137 mmol/L (137-145)
[2023-06-03 20:23] LABS: Add Urine Microscopic? YES; Appearance Urine Clear (Clear); Bacteria Urine None Seen /hpf; Bilirubin Urine 1+ (Negative); Blood Urine Trace (Negative); Color Urine Dark Yellow (Yellow); Glucose Urine UA Negative (Negative); Ketones Urine 1+ mg/dL (Negative); Leukocyte Esterase Ur Negative LEU/UL (Negative); Need Manual Microscopic Reviewed; Nitrate Urine Negative (Negative); Protein Urine 1+ mg/dL (Negative); Squamous Epithelial Cell Urine None seen /hpf (Few); WBC Urine 0-5 /hpf; pH Urine 5.5 (5.0-9.0)
[2023-06-03 22:18] VITALS: BP 136/84; PULSE 94; RESP 15; TEMP 37; O2SAT 100
--- NOTE | 2023-06-03 23:05 | ECG_ITS ---
Measurements Intervals Lind Rate: 79 P: 7 MS: 162 QRS: 24 QRSD: 104 T: 18 QT: 395 QTc: 454 Interpretive Statements SINUS RHYTHM RSR' V1 BORDERLINE ECG COMPARED TO ECG 03/08/2021 09:10:37 NO SIGNIFICANT CHANGES Electronically Signed On 06-04-2023 15:20:05 CDT by Sg Medel M.D.
[2023-06-03] MEDS: HYDROmorphone HCL INJ (*CRX) 1 MG/ML SYR 0.5 MG IV PUSH (23:33)
[2023-06-03] MEDS: SODIUM CHLORIDE 0.9% IV 2,000 ML 999 ML IV CONT (23:33)
[2023-06-03] MEDS: FAMOTIDINE 20 MG/2 ML VIAL IV PUSH (23:33)
[2023-06-03] MEDS: ONDANSETRON INJ 4 MG/2 ML VIAL IV PUSH (23:33)
[2023-06-03] MEDS: ACETAMINOPHEN 500 MG TABLET 1000 MG PO (23:34)
[2023-06-03 23:54] LABS: Benzodiazepines Screen Urine Negative (Negative)
[2023-06-03 23:57] LABS: Barbiturate Screen Urine Negative (Negative)
[2023-06-04] MEDS: HYDROmorphone HCL INJ (*CRX) 1 MG/ML SYR IV PUSH (00:45)
--- NOTE | 2023-06-04 01:01 | PC.NURSE ---
Addendum entered by Sury Jacob RN 06/04/23 01:03: EDP Dr. Willams made aware. Original Note: After administration of 1mg of Diluadid, pt oxygen saturation decreased to 80%. This RN sat patient upright, readjusted spo2 monitor. This increased pt oxygen saturation to 99% on room air. EDP Dr. Willams made. pt stated that he has a history of sleep apnea.
[2023-06-04 01:14] LABS: Amphetamine Screen Urine Negative (Negative); Cannabinoid Screen Urine Negative (Negative); Cocaine Screen Urine Negative (Negative); Methadone Screen Urine Negative (Negative); Opiate Screen Urine Negative (Negative); Phencyclidine Screen Urine Negative (Negative)
--- NOTE | 2023-06-04 02:07 | ED.GENADULT ---
HPI - General Adult General Chief complaint: Abdominal Pain Stated complaint: abd pain Time Seen by Provider: 06/03/23 22:42 History of Present Illness HPI narrative: this is a 62-year-old male presenting ED with chief complaint of abdominal pain. Patient says over last 2 days he has been having nausea and vomiting. Today at 6:00 p.m. he started develop an achy pain in the epigastric area that now radiates to the rest of his belly. It is 10 out 10 intensity and comes and goes. He had this 2 years ago and it resolved on its own. is worsened by food intake he is unable to keep anything down. Patient also notes that he has been belching profusely. He denies fever chills chest pain shortness of breath URI symptoms. Related Data Home Medications Medication Instructions Recorded Confirmed omega-3 fatty acids 1,000 mg 1,000 mg PO BID 12/07/19 08/14/22 capsule (Fish Oil Concentrate) psyllium husk 0.4 gram capsule 0.4 gm PO DAILY 12/07/19 08/14/22 (Daily Fiber) melatonin 10 mg tablet 10 mg PO HS 11/06/20 08/14/22 loratadine 10 mg tablet 10 mg PO DAILY 11/16/21 08/14/22 calcium carbonate 600 mg-vitamin 1 cap PO DAILY 11/20/21 08/14/22 D3 12.5 mcg (500 unit) capsule (Calcium 600 with Vitamin D3) acetaminophen 650 mg 650 mg PO Q8H 08/14/22 08/14/22 tablet,extended release (Pain Relief (acetaminophen)) multivitamin 1 tablet PO DAILY 12/31/22 Allergies Allergy/AdvReac Type Severity Reaction Status Date / Time amoxicillin AdvReac Unknown Skin Verified 12/31/22 09:31 irritation-rash Penicillins AdvReac Unknown Rash Verified 12/31/22 09:31 [facility] Past Medical History Medical History Adenomatous colon polyp Anxiety and depression Patel esophagus Diverticulosis Dizziness Epigastric pain GERD (gastroesophageal reflux disease) High cholesterol HLD (hyperlipidemia) Left knee pain MARGARITA (obstructive sleep apnea) Osteoarthritis Restless leg syndrome Right knee pain Tobacco use Vision abnormalities Surgical History Surgical History H/O arthroscopic knee surgery H/O colonoscopy History of cataract surgery History of left hip replacement Family History Family History Mother Diabetes mellitus Father Carcinoma of colon Other Family history of cardiovascular disease Family history of malignant neoplasm Social History Social History Social History: Smokes 1-2 cigs/day Smoking packs per day: 0.50 Smoking cigarettes per day: 10.0 Years smoked: 30 Smoking pack-years: 15.00 Smoking status: Current every day smoker Tobacco type: cigarettes Second hand tobacco smoke exposure: No Alcohol intake: former Substance use: former Substance use type: does not use and marijuana Living arrangements: with family Gender identity (if verbalized by the patient): Male Sexual Orientation (if Verbalized by the Patient): Straight or Heterosexual Spiritual care concerns: No Exam Narrative: APPEARANCE: No apparent distress. Head: atraumatic. EYES: EOMI, NOSE: Atraumatic NECK: Trachea midline RESPIRATORY: No increased rate of breathing, clear to auscultation CARDIOVASCULAR: RRR, ABDOMINAL: abdomen is distended and with tenderness in the epigastric area without guarding or rebound, no tenderness in the right upper quadrant or lower quadrants. MUSCULOSKELETAL: No obvious deformities NEURO: Alert. Moving 4/4 extremities SKIN:: Warm, dry. Normal color PSYCHIATRIC: Normal affect Course Vital Signs Vital signs: Vital Signs Temperature 98.2 F 06/03/23 18:59 Pulse Rate 78 06/03/23 18:59 Respiratory Rate 20 06/03/23 18:59 Blood Pressure 129/74 06/03/23 18:59 Pulse Oximetry 100 06/03/23 18:59 Oxygen Delivery Room Air 06/03/23 18:59 Temp
[2023-06-04] MEDS: METOCLOPRAMIDE HCL INJ 10 MG/2 ML VIAL IV PUSH (02:35)
[2023-06-04 04:56] VITALS: BP 111/76; PULSE 115; RESP 16; O2SAT 93
== END 2023-06-04 04:50 | disposition home or self-care (01) ==
PROVIDERS: Emergency Provider Emergency Medicine; PCP Nurse Practitioner Family
DX: R14.0 Abdominal distension (gaseous) (principal); E78.00 Pure hypercholesterolemia, unspecified; K22.70 Barrett's esophagus without dysplasia; K21.9 Gastro-esophageal reflux disease without esophagitis; G47.33 Obstructive sleep apnea (adult) (pediatric); G25.81 Restless legs syndrome; M19.90 Unspecified osteoarthritis, unspecified site; Z98.49 Cataract extraction status, unspecified eye; Z96.642 Presence of left artificial hip joint; Z86.010 Personal history of colon polyps; F17.210 Nicotine dependence, cigarettes, uncomplicated
CPT/HCPCS: 36415; 74177; 80053; 80307; 81001; 83690; 85025; 93005; 96361; 96374; 96375; 99284; A9270; J1170; J2405; J2765; J7030; Q9967

== ENCOUNTER → 2023-07-08 08:24 | Outpatient (CLI) | payer OTHER, SELFPAY ==
--- NOTE | ~2023-07-08 | CT_ITS ---
CT Scan of the Chest without Contrast: Clinical Indication: Lung cancer screening, personal history of nicotine dependence Technique: Contiguous sections were acquired throughout the chest without intravenous contrast. Dose reduction technique was used on this scan by utilizing automated exposure control and iterative recon struction technique. The dose-length product (DLP) was 174.53 mGy-cm. COMPARISON: 07/03/2022, 12/04/2020 Findings: There is no evidence of any significant mediastinal, hilar or axillary lymphadenopathy. The mediastin al soft tissues appear normal. There is no evidence of pleural or pericardial effusion. The lungs are clear. No pulmonary nodules or infiltrates are noted. Images through the upper abdomen reveal no abnormalities. Impression: Lung RADS 1: Negative. 12 month follow-up screening CT advised. Reviewed, dictated and finalized at [facility]. Impression: Lung RADS 1: Negative. 12 month follow-up screening CT advised.
== END ==
PROVIDERS: PCP Family Medicine; Visit Provider Nurse Practitioner Family
DX: Z12.2 Encounter for screening for malignant neoplasm of respiratory organs (principal); Z87.891 Personal history of nicotine dependence
CPT/HCPCS: 71271

== ENCOUNTER 2023-07-16 00:40 | Day surgery (SDC) | payer OTHER, SELFPAY ==
[2023-07-03 13:35] VITALS: BMI 28.0
[2023-07-16 09:32] VITALS: BP 130/79; PULSE 78; RESP 18; TEMP 36.3; O2SAT 98
[2023-07-16] MEDS: LACTATED RINGERS 1,000 ML 150 ML IV CONT (09:44)
--- NOTE | 2023-07-16 10:00 | WPDANESEPPF ---
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 Patient Data Age: 62 Gender: M Height: 1.83 m Weight: 96.2 kg Last Vital Signs Temp 97.3 F L 07/16/23 09:32 Pulse 78 07/16/23 09:32 Resp 18 07/16/23 09:32 BP 130/79 07/16/23 09:32 Pulse Ox 98 07/16/23 09:32 O2 Del Method Room Air 07/16/23 09:32 Allergies Allergy/AdvReac Type Severity Reaction Status Date / Time amoxicillin AdvReac Unknown Skin Verified 07/16/23 09:31 irritation-rash Penicillins AdvReac Unknown Rash Verified 07/16/23 09:31 Home Medications Medication Instructions Recorded Confirmed Type omega-3 fatty acids 1,000 mg 1,000 mg PO DAILY 12/07/19 07/16/23 History capsule (Fish Oil Concentrate) melatonin 10 mg tablet 10 mg PO HS 11/06/20 07/16/23 History loratadine 10 mg tablet 10 mg PO DAILY 11/16/21 07/16/23 History calcium carbonate 600 mg-vitamin 2 cap PO DAILY 11/20/21 07/16/23 History D3 12.5 mcg (500 unit) capsule (Calcium 600 with Vitamin D3) acetaminophen 650 mg 1,300 mg PO BID PRN Pain, Moderate 08/14/22 07/16/23 History tablet,extended release (Pain Relief (acetaminophen)) multivitamin 1 tablet PO DAILY 12/31/22 07/16/23 History atorvastatin 20 mg tablet 20 mg PO DAILY #90 tabs 05/16/23 07/16/23 Rx duloxetine 60 mg capsule,delayed 60 mg PO DAILY #90 caps 06/16/23 07/16/23 Rx release gabapentin 400 mg capsule 400 mg PO BID 90 days #180 caps 06/16/23 07/16/23 Rx omeprazole 40 mg capsule,delayed 40 mg PO BID #180 caps 06/16/23 07/16/23 Rx release fluticasone propionate 50 2 spray intranasal PRN PRN Allergy 07/03/23 07/16/23 History mcg/actuation nasal Symptoms spray,suspension (Flonase Allergy Relief) glucosamine 750 do-xspnuixwylz-uoj 1 tablet PO BID 07/03/23 07/16/23 History no1 644 mg-C 30 mg-jerry 1 mg tablet (Osteo Bi-Flex Triple Strength) sildenafil 100 mg tablet (Viagra) 50 mg PO DAILY PRN sexual activity 07/03/23 07/16/23 History Patient hx anesthesia problems: none Family hx anesthesia problems: none Results Review: All pre-operative results and documents have been reviewed as part of the pre-operative evaluation. FORMERLY [facility] Past Medical History Medical History (Updated 06/24/23 @ 12:22 by Inessa José APRN) Acute cholecystitis Adenomatous colon polyp Anxiety and depression Patel esophagus Cholelithiasis Diverticulosis Dizziness Epigastric pain GERD (gastroesophageal reflux disease) High cholesterol HLD (hyperlipidemia) Left knee pain Leukocytosis MARGARITA (obstructive sleep apnea) Osteoarthritis Restless leg syndrome Right knee pain Tobacco abuse Tobacco use Vision abnormalities Surgical History Surgical History H/O arthroscopic knee surgery H/O colonoscopy History of cataract surgery History of left hip replacement Family History Family History Mother Diabetes mellitus Father Carcinoma of colon Other Family history of cardiovascular disease Family history of malignant neoplasm Social History Social History Social History: Smokes 1-2 cigs/day Smoking packs per day: 0.50 Smoking cigarettes per day: 10.0 Years smoked: 30 Smoking pack-years: 15.00 Smoking status: Current every day smoker Tobacco type: cigarettes Second hand tobacco smoke exposure: No Alcohol intake: former Alcohol use details: 2-3 drinks per yr Substance use: never Substance use type: does not use Living arrangements: with family Gender identity (if verbalized by the patient): Male Sexual Orientation (if Verbalized by the Patient):
--- NOTE | 2023-07-16 10:12 | WPDHPUPDATE1 ---
History and Physical Update Update Date/Time: 07/16/23 10:12 History and Physical has been reviewed, including an updated exam of the patient. There are NO changes in the patient's condition. Risks, benefits, and alternatives have been discussed and questions answered. Patient agrees to proceed with procedure.
[2023-07-16] MEDS: BENZOCAINE (*SP) 60 ML SPRAY CAN (HURRICAINE) 1 SPRAY MUCOUS MEM (10:19)
[2023-07-16 10:30] VITALS: BP 108/70; PULSE 81; RESP 22; O2SAT 98
[2023-07-16 10:40] VITALS: BP 115/69; PULSE 79; RESP 22; O2SAT 95
[2023-07-16 10:50] VITALS: BP 116/72; PULSE 80; RESP 18; O2SAT 95
== END 2023-07-16 11:07 | disposition home or self-care (01) ==
PROVIDERS: PCP Family Medicine; Visit Provider Internal Medicine Gastroenterology
PROC: 0DJ08ZZ Inspection of Upper Intestinal Tract, Via Natural or Artificial Opening Endoscopic (ICD-10-PCS; CPT 43235; principal; 2023-07-16 10:30)
DX: K22.70 Barrett's esophagus without dysplasia (principal); K21.9 Gastro-esophageal reflux disease without esophagitis; I10 Essential (primary) hypertension; E78.00 Pure hypercholesterolemia, unspecified; G47.33 Obstructive sleep apnea (adult) (pediatric); F41.8 Other specified anxiety disorders; F17.210 Nicotine dependence, cigarettes, uncomplicated
CPT/HCPCS: 43239; 76705; 88305; J2001; J2704; J7120

== ENCOUNTER 2023-07-16 07:35 | Outpatient (CLI) | payer OTHER, SELFPAY ==
--- NOTE | ~2023-07-16 | US_ITS ---
US abdomen limited INDICATION: Abnormal gallbladder on recent CT PROCEDURE: Realtime right upper abdominal ultrasound. COMPARISON: CT dated 06/03/2023 FINDINGS: The pancreas is normal without focal mass or pancreatic ductal dilation. Liver echotexture is increased, consistent with fatty infiltration. No discrete hepatic masses or biliary dilatation. There is normal directional flow in the portal vein. There is mild gallbladder wall thickening. No definite gallstones. Common bile duct measures 5 mm. No sonographic Bella's sign. IMPRESSION: 1: Gallbladder wall thickening. This could indicate interstitial edema, chronic liver disease or back roller negar cholecystitis. 2: Hepatic steatosis. Reviewed, dictated and finalized at location [facility]. IMPRESSION: 1: Gallbladder wall thickening. This could indicate interstitial edema, chronic liver disease or chronic cholecystitis. 2: Hepatic steatosis.
== END 2023-07-16 07:36 | disposition home or self-care (01) ==
PROVIDERS: PCP Family Medicine; Visit Provider Nurse Practitioner
DX: K80.00 Calculus of gallbladder with acute cholecystitis without obstruction (principal); K76.0 Fatty (change of) liver, not elsewhere classified
CPT/HCPCS: 76705

== ENCOUNTER 2023-12-08 14:33 | Outpatient (CLI) | payer OTHER, SELFPAY ==
[2023-12-08 16:24] LABS: Alanine Aminotransferase 39 U/L (6-50); Albumin Level 4.2 g/dL (3.5-5.1); Alkaline Phosphatase 74 U/L (38-126); Amylase 123 U/L (30-110); Aspartate Amino Transferase 30 U/L (17-59); Bilirubin,Total 0.5 mg/dL (0.2-1.3); Lipase 148 U/L (23-300)
== END 2023-12-08 14:34 | disposition home or self-care (01) ==
PROVIDERS: PCP Family Medicine; Visit Provider Surgery
DX: Z01.818 Encounter for other preprocedural examination (principal); K80.20 Calculus of gallbladder without cholecystitis without obstruction
CPT/HCPCS: 36415; 80076; 82150; 83690

== ENCOUNTER 2023-12-15 03:31 | Day surgery (SDC) | payer OTHER, SELFPAY ==
--- NOTE | 2023-12-08 12:36 | PC.NURSE ---
Report to the Outpatient Waiting Room, entrance under the green pavilion located off [facility], at time 12:30 on date 12/15/23. Planned Procedure Time: 2:30. Time changes happen often and if your time is changed the preop area will call you the afternoon before. - You and your visitor will be asked to self-screen and do not enter if you have any COVID symptoms. - A mask is optional within the hospital at this time. Patients may have clear liquids (water, carbonated beverages, clear teas, apple juice) until 3 hours prior to surgery (11:30) with a maximum of 20 ounces. - No food from midnight until time of surgery Take the following medications with a SIP of water the morning of surgery: DULOXETINE, GABAPENTIN, TYLENOL DO NOT STOP ANY OF YOUR OTHER PRESCRIPTION MEDICATIONS PRIOR TO SURGERY ?EXCEPT THE FOLLOWING Medications to discontinue per physician: VITAMINS/SUPPLEMENTS Date to take last dose: 12/11/23 Please no make-up, nail nicaraguan, hairspray, perfume, deodorant, or body powder the day of surgery. No jewelry (including any body piercings) or valuables the day of surgery, leave them at home. Please take a shower or bath the night before, or the morning of, surgery with an antibacterial soap. Wear comfortable, loose fitting clothing. - Jewelry must be removed prior to entering the operating room. Rings and piercings that are not removed may be cut off. - The hospital will not accept responsibility for valuables. - Please leave all valuables, including medications, at home the day of surgery. If you are going home after surgery, a licensed class c truck driver must drive you home. - NO public transportation without another adult if you receive anesthesia. - We recommend that an adult stay with you for 24 hours following discharge. - We also recommend that you do not drive, make important decision, drink alcoholic beverages, or take any drugs that were not prescribed by your health care provider for at least 24 hours after your discharge time. Follow any additional instructions given to you from your surgeon. If you or anyone in your household have experienced Covid symptoms in the past week, please notify your surgeon or the nurse liaison at the phone number below for possible testing. Telephone instructions given to PT - SCOTT VILLAR and asked if any additional questions and then verbalized understanding. Patient advised to call surgeon office or pre surgery nurse liaison [phone] if any additional questions.
[2023-12-08 12:37] VITALS: BMI 30.1
[2023-12-15] VITALS (10 sets, daily range): BP systolic 99–138; BP diastolic 64–78; PULSE 68–82; RESP 10–20; TEMP 36.3–37.1; O2SAT 93–100
--- NOTE | 2023-12-15 12:42 | WPDHPUPDATE1 ---
History and Physical Update Update Date/Time: 12/15/23 12:42 History and Physical has been reviewed, including an updated exam of the patient. There are NO changes in the patient's condition. Risks, benefits, and alternatives have been discussed and questions answered. Patient agrees to proceed with procedure.
[2023-12-15] MEDS: LACTATED RINGERS 1,000 ML 30 ML IV CONT ×2 (12:50→15:02)
[2023-12-15] MEDS: KETOROLAC 15 MG/ML VIAL (*BKC) IV PUSH (12:54)
[2023-12-15] MEDS: SCOPOLAMINE 1 MG PATCH 1 PATCH TRANSDERM (12:59)
[2023-12-15] MEDS: ceFAZolin 2 GM/D5W 50 ML 2 GM/50 ML BAG IVPB (13:11)
[2023-12-15] MEDS: BUPIVACAINE/EPINEPHRINE 0.5% 30 ML VIAL INFILTRATE (13:52)
--- NOTE | 2023-12-15 14:18 | W.PM.PROC2 ---
Procedure Note - Detailed Date of Procedure 12/15/23 Pre-op Diagnosis Symptomatic Cholelithiasis, umbilical hernia Post-op Diagnosis Same (1 cm umbilical hernia) Procedure Performed 1. laparoscopic cholecystectomy 2. open 1 cm umbilical hernia repair Surgeon Reji Alston, DO Anesthesia General and Local (0.5% bupivacaine) Indications This is a 62-year-old man who presented with recurrent right upper quadrant abdominal pains. He had previously had imaging which showed evidence of cholelithiasis, but his pain was initially controlled with dietary modifications. More recently he has been having more significant pains and followed up for re-evaluation. He has evidence of symptomatic cholelithiasis. Discussions were made with the patient about treatment options and decision was made to proceed with laparoscopic cholecystectomy, possible open. The patient also has a 1 cm umbilical hernia that is causing some occasional discomfort. Decision was also made to proceed with umbilical hernia repair at time of laparoscopic cholecystectomy. Findings Laparoscopic cholecystectomy was performed. The patient's gallbladder was slightly dilated and had gallstones within the gallbladder. The cystic duct appeared normal in size. No other significant abnormalities were noted. The gallbladder was removed and sent to the lab for pathology. Description of Procedure Procedure as well as risks, benefits, and alternatives were discussed with patient. Written consent was obtained and placed in chart prior to procedure. The patient was brought back to surgical suite. Patient was placed in supine position on operating table. Time-out was done to confirm patient and procedure. Patient was then intubated by the anesthesia department. Abdomen was prepped and draped in sterile fashion using chlorhexidine prep. 0.5% bupivacaine with epinephrine was infiltrated at each site of incision. A 3 cm curvilinear incision was made just above the umbilicus using a 15 blade scalpel. Blunt dissection was carried down to the linea alba. The hernia sac was carefully dissected free from the subcutaneous tissue using electrocautery. The peritoneum was then bluntly entered directly through the hernia defect. An 11 millimeter trocar was inserted and carbon dioxide insufflation was used to create a pneumoperitoneum. The camera was inserted and the abdomen was inspected. The patient was placed in reverse Trendelenberg position and rotated slightly to the left. A 5 millimeter incision was made in the epigastric region, and a 5 millimeter trocar was inserted under direct visualization. Two 5 millimeter incisions were made in the right upper quadrant, and two 5 millimeter trocars were inserted under direct visualization. The gallbladder was identified and grasped at the fundus and retracted superiorly. It was then grasped at the infundibulum retracted laterally. Careful dissection around the neck of the gallbladder was performed using blunt dissection with a [place] grasper and hook electrocautery. The cystic duct was identified, and a window was created behind it. The cystic artery was also identified and a window was created behind it. The critical view of safety was identified, visualizing the cystic duct running directly into the neck of the gallbladder, and the cystic artery running directly into the wall of the gallbladder. A 5 millimeter clip seasonal package handler was then used to place 2 clips proximally and 1 clip distally on both the cystic duct and cystic artery. They were then both transected using endoscopic scissors. Once safely away from the telma hepatitis, the gallbladder was dissected free from the liver bed using hook electrocautery. Hemostasis was achieved along the way. The gallbladder was removed completely and then removed through the umbilical port. The liver bed was then inspected. Hemostasis appeared adequate, and our clips appeared secure. The area was gently irrigated with sterile saline. There was some mild bleeding along the liver bed, therefore Surgiflo was sprayed along the gallbladder fossa. Hemostasis appeared adequate after this. The patient was flattened out in bed, and 1 final inspection was made around the abdominal cavity. The ports were then removed under direct visualization, the camera was removed, and the pneumoperitoneum was released. The preperitoneal fat around the umbilical hernia defect was excised with electrocautery. The fascia was cleared circumferentially around the hernia defect to adequately visualize the fascial edges. The hernia measured 1 cm. The fascial edges were then reapproximated to repair the hernia using 0 Ethibond ufaopo-ho-feell sutures. A total of 2 sutures were placed vertically to approximate the fascia. Once the sutures were tied down in place the repair was inspected and appeared secure. The umbilical skin was then reapproximated to the fascia using 3-0 Vicryl simple interrupted sutures. The deep dermis was approximated using 3-0 Vicryl simple interrupted sutures. The skin of the incisions was approximated using 4-0 Monocryl subcuticular sutures. Exofin glue was applied on top. The patient was then awakened from anesthesia, extubated, and transferred to recovery. Estimated Blood Loss 20 Urine Output 300 Pathology Yes (Gallbladder) Complications No immediate complications Condition Stable Disposition Same day [facility] Billing Surgery - Charge Forward: Surgery Billing
[2023-12-15] MEDS: fentaNYL CITRATE INJ (*CRX) 100 MCG/2 ML VIAL 25 MCG IV PUSH ×2 (15:00→15:02)
[2023-12-15] MEDS: oxyCODONE HCL (*CRX) 5 MG TAB IR PO (16:02)
--- NOTE | 2023-12-16 07:53 | P.PNAN_ITS ---
Anes - Initial Pre Proc Eval Procedure: Operation Date: 12/15/23 13:00 Proposed Procedures p Laparoscopic Cholecystectomy Possible Open - Reji Alston DO s Open Umbilical Hernia Repair - Reji Alston DO Date/Time: 12/16/23 07:53 Surgeon: Reji Alston DO Pre Op Diagnosis: Symptomatic Cholelithiasis, Umh Hernia 1cm Patient Data Age: 62 Gender: M Height: 1.83 m Weight: 100.4 kg Last Vital Signs Temp 36.3 C L 12/15/23 14:27 Pulse 74 12/15/23 16:30 Resp 19 12/15/23 15:46 BP 116/78 12/15/23 16:30 Pulse Ox 94 12/15/23 15:46 O2 Del Method Room Air 12/15/23 16:30 O2 Flow Rate 10 12/15/23 14:40 Allergies Allergy/AdvReac Type Severity Reaction Status Date / Time amoxicillin AdvReac Unknown Skin Verified 12/15/23 12:33 irritation-rash Penicillins AdvReac Unknown Rash Verified 12/15/23 12:33 Home Medications Medication Instructions Recorded Confirmed Type omega-3 fatty acids 1,000 mg 1,000 mg PO DAILY 12/07/19 12/15/23 History capsule (Fish Oil Concentrate) melatonin 10 mg tablet 10 mg PO HS 11/06/20 12/15/23 History loratadine 10 mg tablet 10 mg PO DAILY 11/16/21 12/15/23 History calcium carbonate 600 mg-vitamin 2 cap PO DAILY 11/20/21 12/15/23 History D3 12.5 mcg (500 unit) capsule (Calcium 600 with Vitamin D3) multivitamin 1 tablet PO DAILY 12/31/22 12/09/23 History fluticasone propionate 50 2 spray intranasal PRN PRN Allergy 07/03/23 12/15/23 History mcg/actuation nasal Symptoms spray,suspension (Flonase Allergy Relief) glucosamine 750 xj-dyloaidgzoj-eoc 1 tablet PO BID 07/03/23 12/15/23 History no1 644 mg-C 30 mg-jerry 1 mg tablet (Osteo Bi-Flex Triple Strength) sildenafil 100 mg tablet (Viagra) 50 mg PO DAILY PRN sexual activity 07/03/23 12/09/23 History atorvastatin 20 mg tablet 20 mg PO DAILY #90 tabs 07/22/23 12/15/23 Rx duloxetine 60 mg capsule,delayed 60 mg PO DAILY #90 caps 07/22/23 12/15/23 Rx release gabapentin 400 mg capsule 400 mg PO BID 90 days #180 caps 07/22/23 12/15/23 Rx omeprazole 40 mg capsule,delayed 40 mg PO BID #180 caps 07/22/23 12/15/23 Rx release gabapentin 100 mg capsule 100 mg PO .COMPLEX #90 caps 10/15/23 12/15/23 Rx acetaminophen 650 mg 1,300 mg PO Q12H 12/08/23 12/15/23 History tablet,extended release hydrocodone 5 mg-acetaminophen 325 1 tablet PO Q4H PRN pain #10 tabs 12/15/23 Rx mg tablet Patient hx anesthesia problems: none Family hx anesthesia problems: none Results Review: All pre-operative results and documents have been reviewed as part of the pre- operative evaluation. FOR[facility]LY [facility] Past Medical History Medical History Adenomatous colon polyp Anxiety and depression Patel esophagus Cholelithiasis Chronic cholecystitis Chronic pain of right knee Diverticulosis Dizziness GERD (gastroesophageal reflux disease) High cholesterol HLD (hyperlipidemia) MARGARITA (obstructive sleep apnea) Restless leg syndrome Tobacco abuse Surgical History Surgical History H/O arthroscopic knee surgery H/O colonoscopy History of cataract surgery History of left hip replacement History of rectal polypectomy Family History Family History Mother Diabetes mellitus Father Carcinoma of colon Other Family history of cardiovascular disease Family history of malignant neoplasm Social History Social History Social History: Smokes 3 to 4 cigs/day Smoking packs per day: 0.75 Smoking cigarettes per day: 15.0 Years smoked: 30 Smoking pack-years: 22.50 Smoking status: Current every day smoker Tobacco type: cigarettes Second hand tobacco smoke exposure: No Alcohol intake: never Alcohol use details: 2-3 drinks per yr Substance use: never Substance use type: does not use Living arrangements: with family Gender identity (if verbalized by the patient): Male Sexual Orientation (if Verbalized by the Patient): Straight or Heterosexual Spiritual care concerns: No Anes - Eval Final PreProcedure Day of Procedure 12/16/23 07:53 Patient weight: obese Heart: regular rate and rhythm Lungs: decreased breath sounds Airway: Mallampati scale class II Neurological: alert and oriented Last oral intake: >/= 8 hours ASA classification: III Emergent: no Anesthetic plan: proceed Anesthesia type and monitoring: general ETT and standard monitoring Results Review: All pre-operative results and documents have been reviewed as part of the pre- operative evaluation. Informed Consent: The patient's anesthetic plan and its attendant risks and benefits were discussed with the patient/family/POA. Questions were solicited and answers provided to the satisfaction of the patient/family/POA.
== END 2023-12-15 16:55 | disposition home or self-care (01) ==
PROVIDERS: PCP Family Medicine; Visit Provider Surgery
PROC: 0FT44ZZ Resection of Gallbladder, Percutaneous Endoscopic Approach (ICD-10-PCS; CPT 47562; principal; 2023-12-15 13:00)
PROC: (CPT 47562; 2023-12-15 13:00)
DX: K80.10 Calculus of gallbladder with chronic cholecystitis without obstruction (principal); K42.9 Umbilical hernia without obstruction or gangrene; E78.5 Hyperlipidemia, unspecified; K21.9 Gastro-esophageal reflux disease without esophagitis; F41.8 Other specified anxiety disorders; K22.70 Barrett's esophagus without dysplasia; G89.29 Other chronic pain; M25.561 Pain in right knee; K57.30 Diverticulosis of large intestine without perforation or abscess without bleeding; G47.33 Obstructive sleep apnea (adult) (pediatric); G25.81 Restless legs syndrome; F17.210 Nicotine dependence, cigarettes, uncomplicated; E66.9 Obesity, unspecified; Z68.30 Body mass index [BMI] 30.0-30.9, adult; Z79.891 Long term (current) use of opiate analgesic; Z98.890 Other specified postprocedural states; Z86.010 Personal history of colon polyps; Z82.49 Family history of ischemic heart disease and other diseases of the circulatory system; Z80.0 Family history of malignant neoplasm of digestive organs
CPT/HCPCS: 47562; 36415; 80076; 82150; 83690; 88304; A9270; J0690; J1100; J1885; J2003; J2250; J2405; J2704; J3010; J7030; J7120

== ENCOUNTER 2024-07-09 12:46 | Outpatient (CLI) | payer OTHER, SELFPAY ==
--- NOTE | ~2024-07-09 | CT_ITS ---
EXAMINATION: CT lung screening DATE: 07/09/2024 13:01 INDICATION: Z87.891 - Personal history of nicotine dependence TECHNIQUE: Computed tomography (CT) of the chest was performed without intravenous contrast. Addition al 3D reconstructions utilizing coronal maximum intensity projection (MIP) were performed. Automated exposure control and iterative reconstruction technique were employed. The dose-length product was 23 5.83 mGy-cm. COMPARISON: 07/08/2023 FINDINGS: Discoid atelectasis in the bilateral lower lobes. Tiny calcified right upper lobe nodule consistent w ith old granulomatous disease. No new or enlarging pulmonary nodules. No pneumonia,, pulmonary edema or pleural effusion. Heart size is normal. Atherosclerotic coronary artery calcifications. No pericar dial effusion. Thoracic aorta is normal in caliber. No pathologically enlarged thoracic lymphadenopat hy. Cholecystectomy clips in the gallbladder fossa. Additional possible dropped clip along the anteri or margin of the inferior vena cava. Thoracic spondylosis with bridging osteophytes at multiple level s consistent with diffuse idiopathic skeletal hyperostosis (DISH). IMPRESSION: 1. Lung-RADS category 1: Negative. Continue annual screening with noncontrast low-dose chest CT in 12 months. Reviewed, dictated and finalized at location [facility]. IMPRESSION: 1. Lung-RADS category 1: Negative. Continue annual screening with noncontrast l ow-dose chest CT in 12 months.
== END 2024-07-09 12:47 | disposition home or self-care (01) ==
LOC: MICIMG 12:48
PROVIDERS: PCP Family Medicine; Visit Provider Nurse Practitioner Family
DX: Z12.2 Encounter for screening for malignant neoplasm of respiratory organs (principal); Z87.891 Personal history of nicotine dependence
CPT/HCPCS: 71271

== ENCOUNTER 2025-03-08 00:51 | Day surgery (SDC) | payer MEDICARE, SELFPAY ==
[2025-02-28 15:21] VITALS: BMI 31.1
--- OUTSIDE RECORDS SUMMARY | 2025-03-08 00:53 | XMS_ITS | Clinical Summary ---
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 Active gabapentin (NEURONTIN) 400 MG capsule Take 1 capsule (400 mg total) by mouth 2 (two) times a day. Active DULoxetine (CYMBALTA) 60 MG capsule Take 1 capsule (60 mg total) by mouth daily. Active atorvastatin (LIPITOR) 20 MG tablet Take 1 tablet (20 mg total) by mouth daily. Active [place]-3 Fatty Acids (FISH OIL) 1360 MG Cap Take 2 tablets by mouth daily. Active Calcium Carbonate-Vit D-Min (CALCIUM 1200 OR) Take 2 tablets by mouth daily. Active Multiple Vitamins-Minera ls (MULTIVITAMIN ADULTS OR) Take 1 tablet by mouth daily. Active Acetaminophen (TYLENOL ARTHRITIS PAIN OR) Take 2 tablets by mouth every 8 (eight) hours as needed. Takes daily Active melatonin 5 MG tablet Take 2 tablets (10 mg total) by mouth nightly as needed. Active loratadine (ALLERGY RELIEF) 10 MG tablet Take 1 tablet (10 mg total) by mouth daily. Active Misc Natural Products (OSTEO BI-FLEX ADV DOUBLE ST OR) Take 1 tablet by mouth daily. Active fluticasone propionate (FLONASE) 50 MCG/ACT nasal spray by Nasal route daily as needed for Rhinitis. Active sildenafil (VIAGRA) 100 MG tablet Take 1 tablet (100 mg total) by mouth daily as needed for Erectile Dysfunction. Active Vitamin D3 (VITAMIN D) 50 mcg tablet Take 1 tablet (50 mcg total) by mouth daily. Active gabapentin (NEURONTIN) 100 MG capsule Take 1 capsule (100 mg total) by mouth daily. In afternoon Active Active Problems Problem Noted Date Diagnosed Date Malignant neoplasm of prostate ([facility]) 04/19/2024 Elevated PSA 02/18/2024 Social History Tobacco Use Types Packs/Day Years Used Date Smoking Tobacco: Every Day Cigarettes 0.3 45.4 Started: 1979 Smokeless Tobacco: Never Tobacco Cessation:Ready to Q uit: Not Asked; Counseling Given: Not Answered Alcohol Use Standard Drinks/Week Comments Never 0 (1 standard drink = 0.6 oz pur e alcohol) Sex and Gender Information Value Date Recorded Sex Assigned at Male 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 Male 8:11 AM CDT Gender Identity Not on file Sexual Orientation Not on file Last Filed Vital Signs Vital Sign Reading Time Taken Comments Blood Pressure 106/70 04/20/2024 11:05 AM CDT Pulse 74 04/20/2024 11:05 AM CDT Temperature 36.9 C (98.4 F) 04/20/2024 11:05 AM CDT Respiratory Rate 20 04/20/2024 11:0 5 AM CDT Oxygen Saturation 95% 04/20/2024 11: 05 AM CDT Inhaled Oxygen Concentration - - Weight 108.3 kg (238 lb 12.1 oz) 04/20/2024 4:24 AM CDT Height 182.9 cm (6') 04/19/2024 7:10 AM CDT Body Mass Index 32.38 04/19/2024 7:10 AM CDT Plan of Treatment Health Maintenance Due Date Last Done Comments Colorectal Cancer Screening Colonoscopy (10 Years) 1959 Hepatitis C 12/18/1977 Pneumococcal Vaccine: 50+ Years (1 of 2 - PCV) 12/18/1978 COVID-19 Vaccine ( season) 2024 08/19/2022, 11/05/2021, 12/30/2020, Additional history exists DTaP, Tdap and Td Vaccines (2 - Td or Tdap) 10/31/2024 10/31/2014, 07/08/2005 AAA SCREENING 12/18/2024 Zoster Vaccines Completed 12/25/2019, 10/07/2019 RSV Immunization or 60+ Years Completed 10/01/2023 Meningococcal B Vaccine Aged Out No l onger eligible based on patient's age to complete this topic Meningococcal Vaccine Aged Out No jeronimo mouna eligible based on patient's age to complete this topic RSV Immunizations Under 20 Months Aged Out No longer eligible based on patient's age to complete this topic Insurance Advance Directives * Full Code (Latest Code Status on File) Date Activated Date Inactivated Comments 04/19/2024 3:06 PM 04/20/2024 2:40 PM 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
[2025-03-08 09:33] VITALS: BP 122/78; PULSE 88; RESP 20; TEMP 36.5; O2SAT 98
--- NOTE | 2025-03-08 09:35 | P.PNAN_ITS ---
Anes - Initial Pre Proc Eval Procedure: Operation Date: 03/08/25 11:00 Proposed Procedures p Colonoscopy - Alessandro Stanley MD Date/Time: 03/08/25 09:35 Surgeon: Alessandro Stanley MD Pre Op Diagnosis: personal hx colon polyps Patient Data Age: 64 Gender: M Height: 1.83 m Weight: 104.4 kg Allergies Allergy/AdvReac Type Severity Reaction Status Date / Time amoxicillin AdvReac Unknown Skin Verified 03/08/25 09:29 irritation-rash Penicillins AdvReac Unknown Rash Verified 03/08/25 09:29 Home Medications Medication Instructions Recorded Confirmed Type omega-3 fatty acids 1,000 mg 1,000 mg PO DAILY 12/07/19 03/08/25 History capsule (Fish Oil Concentrate) melatonin 10 mg tablet 10 mg PO HS 11/06/20 03/08/25 History loratadine 10 mg tablet 10 mg PO DAILY 11/16/21 03/08/25 History calcium 600 mg (as 2 cap PO DAILY 11/20/21 03/08/25 History carbonate)-vitamin D3 12.5 mcg (500 unit) capsule (Calcium with Vit D3) multivitamin 1 tablet PO DAILY 12/31/22 03/08/25 History fluticasone propionate 50 2 spray intranasal PRN PRN Allergy 07/03/23 03/08/25 History mcg/actuation nasal Symptoms spray,suspension (Flonase Allergy Relief) glucosamine 750 [id number] 1 tablet PO BID 07/03/23 03/08/25 History no1 644 mg-C 30 mg-jerry 1 mg tablet (Osteo Bi-Flex Triple Strength) acetaminophen 650 mg 1,300 mg PO Q12H 12/08/23 03/08/25 History tablet,extended release propylene glycol 0.6 % eye drops 1 drp EACH EYE DAILY PRN dry eye(s) 08/02/24 02/28/25 History (Systane Complete) omeprazole 40 mg capsule,delayed 40 mg PO BID #180 caps 10/22/24 03/08/25 Rx release atorvastatin 20 mg tablet 20 mg PO DAILY #90 tabs 11/22/24 03/08/25 Rx gabapentin 400 mg capsule 400 mg PO BID 90 days #180 caps 11/22/24 03/08/25 Rx sildenafil 100 mg tablet (Viagra) 100 mg PO DAILY PRN sexual 01/10/25 02/28/25 Rx activity #4 tabs gabapentin 100 mg capsule 200 mg (2 x 100 mg) PO DAILY #180 01/18/25 03/08/25 Rx caps duloxetine 60 mg capsule,delayed 60 mg PO DAILY #90 caps 01/20/25 03/08/25 Rx release CPAP machine, tubes, and nasal #1 ea 02/07/25 02/28/25 Rx pillows naproxen 250 mg tablet 220 mg PO DAILY 02/28/25 03/08/25 History Patient hx anesthesia problems: none Family hx anesthesia problems: none Results Review: All pre-operative results and documents have been reviewed as part of the pre- operative evaluation. [facility] Past Medical History Medical History Adenomatous colon polyp Anxiety and depression Patel esophagus Cholelithiasis Chronic cholecystitis Chronic pain of right knee Diverticulosis Dizziness GERD (gastroesophageal reflux disease) High cholesterol HLD (hyperlipidemia) MARGARITA (obstructive sleep apnea) Prostate cancer Restless leg syndrome Tobacco abuse Surgical History Surgical History H/O arthroscopic knee surgery H/O colonoscopy H/O prostatectomy 04/19/24 [facility] History of cataract surgery History of laparoscopic cholecystectomy 12/15/[address] Reji Alston History of left hip replacement History of rectal polypectomy Hx of umbilical hernia repair 1. laparoscopic cholecystectomy 2. open 1 cm umbilical hernia repair 12/15/23 Family History Family History Mother Diabetes mellitus Father Carcinoma of colon Other Family history of cardiovascular disease Family history of malignant neoplasm Social History Social History Social History: Smokes 3 to 4 cigs/day Smoking packs per day: 0.75 Smoking cigarettes per day: 15.0 Years smoked: 30 Smoking pack-years: 22.50 Smoking status: Current every day smoker (3-4 cigarettes per day) Tobacco type: cigarettes (3 a day ) Second hand tobacco smoke exposure: No Alcohol intake: never Alcohol use details: 2-3 drinks per yr Substance use: never Substance use type: does not use Living arrangements: with family Gender identity (if verbalized by the patient): Male Sexual Orientation (if Verbalized by the Patient): Straight or Heterosexual Spiritual care concerns: No Anes - Eval Final PreProcedure Day of Procedure 03/08/25 09:35 Patient weight: obese Heart: regular rate and rhythm Lungs: clear to auscultation Airway: Mallampati scale class II Neurological: alert and oriented Last oral intake: >/= 8 hours ASA classification: III Emergent: no Anesthetic plan: proceed Anesthesia type and monitoring: general GIVS and standard monitoring Results Review: All pre-operative results and documents have been reviewed as part of the pre- operative evaluation. Informed Consent: The patient's anesthetic plan and its attendant risks and benefits were discussed with the patient/family/POA. Questions were solicited and answers provided to the satisfaction of the patient/family/POA.
[2025-03-08] MEDS: LACTATED RINGERS 1,000 ML 150 ML IV CONT (09:41)
--- NOTE | 2025-03-08 10:00 | PM.HPGS ---
History of Present Illness History of Present Illness Consent: Risks, benefits, and alternatives have been discussed and questions answered. Patient agrees to proceed with procedure. Chief complaint: personal hx colon polyps Narrative: Bryant Bacon is a 64 year old male with colon polyp in 2019 Review of Systems Review of Systems: All systems reviewed & are unremarkable except as noted in HPI and below PMFSH Past Medical History Medical History Adenomatous colon polyp Anxiety and depression Patel esophagus Cholelithiasis Chronic cholecystitis Chronic pain of right knee Diverticulosis Dizziness GERD (gastroesophageal reflux disease) High cholesterol HLD (hyperlipidemia) MARGARITA (obstructive sleep apnea) Prostate cancer Restless leg syndrome Tobacco abuse Surgical History Surgical History H/O arthroscopic knee surgery H/O colonoscopy H/O prostatectomy 04/19/24 [facility] History of cataract surgery History of laparoscopic cholecystectomy 12/15/[address] Reji Alston History of left hip replacement History of rectal polypectomy Hx of umbilical hernia repair 1. laparoscopic cholecystectomy 2. open 1 cm umbilical hernia repair 12/15/23 Family History Family History Mother Diabetes mellitus Father Carcinoma of colon Other Family history of cardiovascular disease Family history of malignant neoplasm Social History Social History Social History: Smokes 3 to 4 cigs/day Smoking packs per day: 0.75 Smoking cigarettes per day: 15.0 Years smoked: 30 Smoking pack-years: 22.50 Smoking status: Current every day smoker (3-4 cigarettes per day) Tobacco type: cigarettes (3 a day ) Second hand tobacco smoke exposure: No Alcohol intake: never Alcohol use details: 2-3 drinks per yr Substance use: never Substance use type: does not use Living arrangements: with family Gender identity (if verbalized by the patient): Male Sexual Orientation (if Verbalized by the Patient): Straight or Heterosexual Spiritual care concerns: No Meds Home Medications and Allergies Home Medications Medication Instructions Recorded Confirmed Type omega-3 fatty acids 1,000 mg 1,000 mg PO DAILY 12/07/19 03/08/25 History capsule (Fish Oil Concentrate) melatonin 10 mg tablet 10 mg PO HS 11/06/20 03/08/25 History loratadine 10 mg tablet 10 mg PO DAILY 11/16/21 03/08/25 History calcium 600 mg (as 2 cap PO DAILY 11/20/21 03/08/25 History carbonate)-vitamin D3 12.5 mcg (500 unit) capsule (Calcium with Vit D3) multivitamin 1 tablet PO DAILY 12/31/22 03/08/25 History fluticasone propionate 50 2 spray intranasal PRN PRN Allergy 07/03/23 03/08/25 History mcg/actuation nasal Symptoms spray,suspension (Flonase Allergy Relief) glucosamine 750 [id number] 1 tablet PO BID 07/03/23 03/08/25 History no1 644 mg-C 30 mg-jerry 1 mg tablet (Osteo Bi-Flex Triple Strength) acetaminophen 650 mg 1,300 mg PO Q12H 12/08/23 03/08/25 History tablet,extended release propylene glycol 0.6 % eye drops 1 drp EACH EYE DAILY PRN dry eye(s) 08/02/24 02/28/25 History (Systane Complete) omeprazole 40 mg capsule,delayed 40 mg PO BID #180 caps 10/22/24 03/08/25 Rx release atorvastatin 20 mg tablet 20 mg PO DAILY #90 tabs 11/22/24 03/08/25 Rx gabapentin 400 mg capsule 400 mg PO BID 90 days #180 caps 11/22/24 03/08/25 Rx sildenafil 100 mg tablet (Viagra) 100 mg PO DAILY PRN sexual 01/10/25 02/28/25 Rx activity #4 tabs gabapentin 100 mg capsule 200 mg (2 x 100 mg) PO DAILY #180 01/18/25 03/08/25 Rx caps duloxetine 60 mg capsule,delayed 60 mg PO DAILY #90 caps 01/20/25 03/08/25 Rx release CPAP machine, tubes, and nasal #1 ea 02/07/25 02/28/25 Rx pillows naproxen 250 mg tablet 220 mg PO DAILY 02/28/25 03/08/25 History Allergies Allergy/AdvReac Type Severity Reaction Status Date / Time amoxicillin AdvReac Unknown Skin Verified 03/08/25 09:29 irritation-rash Penicillins AdvReac Unknown Rash Verified 03/08/25 09:29 Vital Signs Vital Signs - 24 hr 03/08/25 09:33 Temperature 97.7 F Pulse Rate 88 Respiratory Rate 20 Blood Pressure 122/78 Pulse Oximetry 98 Oxygen Delivery Room Air Exam Const: General: comfortable and no acute distress HENMT: Face/Nose/Sinus: Normal nares present Eyes: General: appearance normal, both eyes and all related structures Neck: Neck: no JVD Resp: Auscultation: clear to auscultation bilaterally Cardio: Rate: regular rate Rhythm: regular rhythm GI: Inspection: non-distended GI Palp: Yes Soft to palpation Skin: General skin exam: normal color Neuro: General: gait normal Speech: normal speech Extrem: General: normal to inspection Psych: Mental Status: mental status grossly normal Assessment and Plan Assessment and plan (1) Adenomatous colon polyp: Code(s): D12.6 - Benign neoplasm of colon, unspecified Status: Acute Assessment and Plan: colonoscopy
[2025-03-08 10:22] VITALS: BP 107/73; PULSE 76; RESP 19; O2SAT 96
[2025-03-08 10:32] VITALS: BP 116/67; PULSE 77; RESP 19; O2SAT 97
== END 2025-03-08 10:50 | disposition home or self-care (01) ==
PROVIDERS: PCP Family Medicine; Referring Provider Internal Medicine Gastroenterology; Visit Provider Internal Medicine Gastroenterology
PROC: 0DJD8ZZ Inspection of Lower Intestinal Tract, Via Natural or Artificial Opening Endoscopic (ICD-10-PCS; CPT 45378; principal; 2025-03-08 11:00)
DX: Z12.11 Encounter for screening for malignant neoplasm of colon (principal); D12.4 Benign neoplasm of descending colon; K57.30 Diverticulosis of large intestine without perforation or abscess without bleeding; F17.210 Nicotine dependence, cigarettes, uncomplicated; E66.9 Obesity, unspecified; Z68.30 Body mass index [BMI] 30.0-30.9, adult
CPT/HCPCS: 45385; 88305; J2704; J7120

== ENCOUNTER 2025-08-08 12:14 | Outpatient (CLI) | payer MEDICARE, SELFPAY ==
--- NOTE | ~2025-08-08 | CT_ITS ---
CT lung screening INDICATION: Tobacco use. COMPARISON: None. TECHNIQUE: CT examination of the entire thorax without contrast was performed using low dose technique. Thin section axial, sagittal and coronal images were included to increase sensitivity for small lung nodules. FINDINGS: PULMONARY NODULES: No suspicious noncalcified pulmonary nodules seen. OTHER PULMONARY FINDINGS: No significant nonnodular pleural or parenchymal abnormality is noted. No emphysematous changes are present. No pathologically enlarged lymph nodes are present. Normal heart size. Mild coronary artery calcification is noted in this nongated CT. UPPER ABDOMEN AND PERIPHERAL SOFT TISSUE: Limited views of the upper abdomen and peripheral soft tissue demonstrated no abnormalities. OSSEOUS STRUCTURES: Bone window shows no aggressive blastic or lytic lesions. IMPRESSION: 1. Lung-RADS category 1: No nodules or definitely benign nodules. Recommendations: 1 or 2: Annual screening with low-dose CT in 12 months. 2. No emphysematous changes are present. All CT scans at this facility are performed using low dose modulation techniques as appropriate to perform exam including the following: automated exposure control; use of iterative reconstruction technique; adjustment of the mA and/or kV according to patient size (this includes techniques or standardized protocols for targeted exams where dose is matched to indication/reason for exam). Reviewed, dictated and finalized at location S. IMPRESSION: 1. Lung-RADS category 1: No nodules or definitely benign nodules. Recommendations: 1 or 2: Annual screening with low-dose CT in 12 months. 2. No emphysematous changes are present. All CT scans at this facility are performed using low dose modulation techniqu es as appropriate to perform exam including the following: automated exposure c ontrol; use of iterative reconstruction technique; adjustment of the mA and/or kV according to patient size (this includes techniques or standardized protocol s for targeted exams where dose is matched to indication/reason for exam).
== END 2025-08-08 12:15 | disposition home or self-care (01) ==
LOC: MICIMG 12:15
PROVIDERS: PCP Family Medicine; Visit Provider Student in an Organized Health Care Education/Training Program
DX: Z12.2 Encounter for screening for malignant neoplasm of respiratory organs (principal); Z87.891 Personal history of nicotine dependence
CPT/HCPCS: 71271